=== PATIENT | female | born 1970 | race Caucasian/White ===

== ENCOUNTER → 2020-07-15 06:56 | Outpatient (CLI) | payer OTHER, MEDICAID, SELFPAY ==
[2020-07-15 07:45] LABS: Add Manual Diff / Slide Review NO; Basophils Absolute Auto 100 /uL (0-100); Basophils Percent Auto 0.8 % (0-2); Eosinophils Absolute Auto 200 /uL (0-450); Eosinophils Percent Auto 3.2 % (2-4); Hematocrit 44.6 % (36-46); Hemoglobin 14.4 g/dL (12.0-16.0); Lymphocytes Absolute Auto 1700 /uL (1100-4500); Lymphocytes Percent Auto 24.6 % (25-40); Mean Corpuscular HGB Conc 32.3 % (30-36); Mean Corpuscular Hemoglobin 29.5 PG (26-34); Mean Corpuscular Volume 91.3 fL (80-100); Monocytes Absolute Auto 700 /uL (0-900); Monocytes Percent Auto 9.9 % (3-14); Neutrophils Absolute Auto 4100 /uL (1500-7000); Neutrophils Percent Auto 61.5 % (50-75); Platelet Count 210 X10^3/uL (150-400); Red Blood Cell Count 4.89 X10^6/uL (4.0-5.2); Red Cell Distribution Width 14.5 % (11.6-14.8); White Blood Cell Count 6.7 X10^3/uL (4.5-11.0)
[2020-07-15 08:17] LABS: Alanine Aminotransferase 18 IU/L (<35); Albumin 4.1 g/dL (3.5-5.0); Albumin Globulin Ratio 1.5 (1.0-2.8); Alkaline Phosphatase 56 U/L (38-126); Aspartate Aminotransferase 24 IU/L (14-36); BUN Creatinine Ratio 26.9 (6-22); Bilirubin Total 0.6 mg/dL (0.2-1.3); Blood Urea Nitrogen 18 mg/dL (7-17); Carbon Dioxide 28 mmol/L (22-32); Chloride 107 mmol/L (98-107); Cholesterol 147 mg/dL (140-199); Estimated Glomerular Filt Rate > 60.0 mL/min (>60); Globulin 2.7 g/dL (1.7-4.1); Glucose 97 mg/dL (70-100); HDL Cholesterol 48 mg/dL (40-60); HEMOLYSIS < 15 (0-50); LDL Cholesterol Calculated 86 mg/dL (<100); Potassium 3.8 mmol/L (3.4-5.1); Sodium 139 mmol/L (137-145); Total Protein 6.8 g/dL (6.3-8.2); Triglycerides 65 mg/dL (35-150)
[2020-07-15 09:13] LABS: Free T3, Triiodothyronine Free 3.85 pg/mL (2.77-5.27); Free T4, Direct Thyroxine 0.83 ng/dL (0.78-2.19)
== END ==
PROVIDERS: PCP Family Medicine; Referring Provider Family Medicine; Visit Provider Family Medicine
DX: R53.81 Other malaise (principal); R53.83 Other fatigue; Z13.29 Encounter for screening for other suspected endocrine disorder
CPT/HCPCS: 36415; 80053; 80061; 84439; 84443; 84481; 85025

== ENCOUNTER → 2020-09-17 09:22 | Outpatient (CLI) | payer OTHER, MEDICAID, SELFPAY ==
--- NOTE | 2020-09-17 09:42 | DI.CT.S_ITS ---
PROCEDURE: CT MASTOID TEMPORAL INDICATIONS: right ear pain/right mastoiditis COMPARISON: None. TECHNIQUE: Noncontrast 0.6 mm thick direct axial and coronal sections acquired through each temporal bone separately. FINDINGS Right Temporal Bone: External auditory canal: Patent without debris. Scutum is sharp. No abnormal enhancement present. Ossicular chain and middle ear: Ossicular chain intact. Prussak space and sinus tympani are clear. Oval and round window niche are clear. Tegmen tympani covers both the middle and inner ear without erosions. Inner ear otic capsule: Cochlea, semicircular canals, and vestibular capsules are appropriately formed. Normal bony mineralization noted without lytic foci. Vestibular and cochlear aqueducts unremarkable. Facial nerve canal: Unremarkable. Internal auditory canal: Well-defined without expansion or erosion. Carotid canal and jugular bulb: Well defined. No high-riding jugular bulb. Mastoid air cells: Clear. Aditus ad antrum unremarkable. Temporomandibular joint: Unremarkable Left Temporal Bone: External auditory canal: Patent without debris. Scutum is sharp. No abnormal enhancement present. Ossicular chain and middle ear: Ossicular chain intact. Prussak space and sinus tympani are clear. Oval and round window niche are clear. Tegmen tympani covers both the middle and inner ear without erosions. Inner ear otic capsule: Cochlea, semicircular canals, and vestibular capsules are appropriately formed. Normal bony mineralization noted without lytic foci. Vestibular and cochlear aqueducts unremarkable. Facial nerve canal: Unremarkable. Internal auditory canal: Well-defined without expansion or erosion. Carotid canal and jugular bulb: Well defined. No high-riding jugular bulb. Mastoid air cells: Clear. Aditus ad antrum unremarkable. Temporomandibular joint: Unremarkable IMPRESSION: Unremarkable CT of bilateral temporal bones and mastoids without evidence of mastoiditis or sclerosis. Dictated by: Harlan Tolbert M.D. on 09/17/2020 at 11:58 Approved by: Harlan Tolbert M.D. on 09/17/2020 at 12:54
== END ==
PROVIDERS: PCP Family Medicine; Referring Provider Internal Medicine; Visit Provider Internal Medicine
DX: H70.11 Chronic mastoiditis, right ear (principal); H92.01 Otalgia, right ear
CPT/HCPCS: 70480

== ENCOUNTER → 2021-03-01 15:39 | Outpatient (CLI) | payer OTHER, MEDICAID, SELFPAY ==
--- NOTE | 2021-03-01 | DI.CT.S_ITS ---
PROCEDURE: CT SOFT TISSUE NECK W CON INDICATIONS: LUMP OF NECK TECHNIQUE: After the administration of intravenous contrast, 3.0 mm axial sections acquired from the sella to the aortic arch. Additional oblique axial 3.0 mm sections acquired through the pharynx. 3 mm thick coronal and sagittal reformats were generated. For radiation dose reduction, the following was used: automated exposure control. COMPARISON: [facility], CT, CT MASTOID TEMPORAL, 09/17/2020, 9:28. FINDINGS: Image quality: Excellent. Lymph nodes: No enlarged lymph nodes seen throughout the neck. Vessels: Visualized vasculature appears patent. Neck spaces: The oropharynx, nasopharynx, and pharynx demonstrate no mucosal lesions. The vocal cords, false vocal cords, pyriform sinuses, epiglottis, vallecula, and tongue base all appear normal. Extramucosal spaces appear unremarkable. Glands: Marker corresponds to the right parotid gland. No focal nodule noted. The parotid and submandibular glands appear normal. Thyroid gland unremarkable. Miscellaneous: Visualized brain and orbits appear normal. Lung apices appear clear. Superficial soft tissues appear normal. Bones: No suspicious bony lesions. Visualized sinuses and mastoids appear unremarkable. IMPRESSION: Prior palpable abnormality corresponds to the normal appearing parotid gland. If clinical concern persists, consider follow-up ultrasound. Approved by: Harlan Tolbert M.D. on 03/01/2021 at 16:26
== END ==
PROVIDERS: PCP Family Medicine; Referring Provider Otolaryngology; Visit Provider Otolaryngology
DX: R22.1 Localized swelling, mass and lump, neck (principal)
CPT/HCPCS: 70491

== ENCOUNTER → 2021-04-09 09:54 | Outpatient (CLI) | payer OTHER, MEDICAID, SELFPAY ==
[2021-04-09 10:34] LABS: COVID19 -Nasal RAPID POSITIVE (Negative)
== END ==
PROVIDERS: PCP Family Medicine; Visit Provider Physician Assistant
DX: U07.1 COVID-19 (principal)
CPT/HCPCS: 87635

== ENCOUNTER 2021-05-21 14:30 | Outpatient (RCR) | payer OTHER, MEDICAID, SELFPAY ==
--- NOTE | 2021-03-11 19:41 | PT.OIE ---
Current Diagnoses Otalgia, right ear (03/11/21) Other abnormal auditory perceptions, right ear (03/11/21) Other specified disorders of right ear (03/11/21) Unspecified temporomandibular joint disorder, unspecified side (03/11/21) Cervicalgia (03/11/21) Muscle weakness (generalized) (03/11/21) Abnormal posture (03/11/21) Past Medical History (Last Updated 11/19/20 @ 17:20 by Leno Gray DO) Anxiety Anxiety about health Asthma Bilateral temporomandibular joint pain-dysfunction syndrome Cervical somatic dysfunction Chronic dental pain Chronic eustachian tube dysfunction Cranial somatic dysfunction Diaphragm injury Excessive cerumen in right ear canal Headache History of recurrent ear infection History of tonsillectomy (~1987) Jaw anomaly Pelvic somatic dysfunction Plantar warts PTSD (post-traumatic stress disorder) Segmental and somatic dysfunction of abdomen and other regions Past Surgical History (Last Reviewed 05/25/20 @ 22:31 by RASHMI Bray) Anesthesia History of tonsillectomy (~1987) Visit Care Team Role Provider Type Leno Gray DO Primary Care Provider Physician Specialty: Family Practice Address: [address] [place] [address] Email: Seng Griffin MD Attending Provider Physician Referring Provider Specialty: Ear, Nose, Throat Address: [address] [place] [address], [facility] Email: [email or web address] Physical Therapy Initial Evaluation PT-OP-A Visit Information Start: 03/10/21 15:26 Freq: Status: Active Protocol: Document 03/11/21 09:05 [facility] (Rec: 03/11/21 09:50 [facility] [id number]) Out-Patient Physical Therapy Visit Information Visit Information Visit Type Initial Evaluation Visit Start Time 09:04 Visit Stop Time 09:45 Total Visit Minutes 41 Visit Number 1 Number of OFFLINE CUTTER Visits 0 PT-OP-B Current Condition Start: 03/10/21 15:26 Freq: Status: Active Protocol: Document 03/11/21 09:05 [facility] (Rec: 03/11/21 09:50 [facility] [id number]) Current Condition History of Current Condition Onset Date 2 years Current Complaints R ear uncomfortable History of Current Condition Pt reports it feels like she needs to clear her ear after a flight or swimming. This has been happening for 2 years. she has had lots of tests and dental work. Her hearing is not affected. Pt has had prior root cannels and found that she had a tooth next to the other that had an infection and did another root cannel w/ o help. Pt has done acupuncture in the past with temporary relief. She has tried acupuncture on/off for a while. Pt reports this starts May when she was very sick. She thinks she may have had COVID. Pt reports sometime in September 2019, she had a metallic taste in her mouth and ear felt better til the fall. She went to a doctor d/t ear being painful. Pt reports she has small estation tubes and has had fluid build up. Pt reports MD prescribed her antibiotics for ear infection. She got severe vertigo d/t antibiotics and lasted until 3 days after it went away. Pt reprots now the last 6 months since dental work has been done, it clicks. ENT suggested OTC building guard deputy sheriff for clenching at night. Pt has been using building guard deputy sheriff for the past week and thinks maybe it has helped a tiny bit w/neck pain & head tension. Pt reports she hit her head really hard right before getting sick and hit it on a metal bar. It hurt so it stunned me and it made a big lump and had to put arnica and ice on it. Sometimes R arm goes numb with gardening or activities that use the arm a lot. 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 Prior Treatments and Tests IMPRESSION: Prior palpable abnormality corresponds to the normal appearing parotid gland. If clinical concern persists, consider follow-up ultrasound. IMPRESSION: Unremarkable CT of bilateral temporal bones and mastoids without evidence of mastoiditis Chiro did a little TMJ work ( Jose Barreto)- just seemed to make it hurt worse, but no relief acupuncture -helped temporarily w/ear issue or sclerosis. Treatment Goals Patient/Caregiver Goals no have jaw click and not feel like she has to move it around, get back to being able to do more gardening/working more w/B&B PT-OP-C Subjective Start: 03/10/21 15:26 Freq: Status: Active Protocol: Document 03/11/21 09:05 [facility] (Rec: 03/11/21 09:50 [facility] [id number]) OP-PT Pain Assessment Location neck pain Description Tightness Frequency Intermittent Radiating Location occ SWANN or tension into R head; Variations/Patterns ant brachium & post forearm & all of hand numbness Other Pain Aggravating Factors overuse of R arm Other Pain Alleviating Factors nightguard, stretch jaw Pain Location Details R ear and ant jaw Description- Other tension & feels like ear near needs to clear Frequency Daily Radiating Location ringing if push bottom jaw fwd -goes away when jaw comes back Variations/Patterns jaw now cracks Other Pain Aggravating Factors unsure Other Pain Alleviating Factors temp relief w/occ pop jaw w/ moving jaw PT-OP-F Manual Assessment Start: 03/10/21 15:26 Freq: Status: Active Protocol: Document 03/11/21 09:05 [facility] (Rec: 03/11/21 09:50 [facility] [id number]) Manual Assessments Soft Tissue Assessment Soft Tissue Mobility Assessment Supraspinatus, scalenes, upper trap, suboccipitals, traps palpation: tightness Pec palpation: increased tone and pain on palpation Temporal: R tight, pt reports feeling good Maseter: R tight along posterior border of jaw PT-OP-J Posture/Palpation/Skin Start: 03/10/21 15:26 Freq: Status: Active Protocol: Document 03/11/21 09:05 [facility] (Rec: 03/11/21 09:50 [facility] [id number]) Posture Evaluation [facility] Postural Classification System [facility] Postural Classifications Posterior/Posterior Vertebral Compression Test 1 Comments Posture Comments slight fwd shoulder and neck PT-OP-K Range of Motion Start: 03/10/21 15:26 Freq: Status: Active Protocol: Document 03/11/21 09:05 [facility] (Rec: 03/11/21 09:50 [facility] [id number]) Cervical Spine Range of Motion Cervical Spine Active Degrees Testing Position Sitting Flexion 57 Extension 60 Rotation Left 47 Rotation Right 46 Lateral Flexion Left 34 Lateral Flexion Right 37 ROM Limitations Soft Tissue Tightness Comments extension: tightness on right side SB R: makes pt want to click R jaw, increased pressure/ fullness in R ear R rot: pt hears noise L rot: pt reports feeling less comfortable compared to R rot TMJ Range of Motion Jaw Openning Jaw Openning (mm) 43 Comments Comments jaw opens well, slight deviation to left PT-OP-L Special Tests Start: 03/10/21 15:26 Freq: Status: Active Protocol: Document 03/11/21 09:05 [facility] (Rec: 03/11/21 09:50 [facility] [id number]) Special Tests Neural Special Tests- Upper Body Median Nerve Tension Test Results Positive Comments In standing, right side Radial Nerve Tension Test Results Negative Comments In standing, right side Ulnar Nerve Tension Test Results Negative Comments In standing, right side Other Special Tests Special Tests Spurlings: negative Alar ligament: negative PT-OP-M Strength Start: 03/10/21 15:26 Freq: Status: Active Protocol: Document 03/11/21 09:05 [facility] (Rec: 03/11/21 09:50 [facility] [id number]) Shoulder Strength Shoulder Manual Muscle Testing Right Flexion 5 Normal Extension 5 Normal Abduction (C5) 4+ Good+ Adduction 5 Normal External Rotation 5 Normal Internal Rotation 5 Normal Comments Elbow ext and flex 5/5 Left Flexion 5 Normal Extension 5 Normal Abduction (C5) 5 Normal Adduction 5 Normal External Rotation 5 Normal Internal Rotation 5 Normal Comments Elbow extension and flexion 5/ 5 PT-OP-T Assessment and Plan Start: 03/10/21 15:26 Freq: Status: Active Protocol: Document 03/11/21 09:05 [facility] (Rec: 03/11/21 09:50 [facility] [id number]) Physical Therapy Assessment Rehab Potential Rehabilitation Potential Good Evaluation Complexity Number of Personal Factors/Comorbidities 3 or More Number of Body Systems Impaired 4 or More Clinical Presentation at Evaluation Evolving Impairments Impairments Activity Tolerance,Functional Activities,Functional Mobility ,Pain,Posture,ROM,Soft Tissue Mobility,Strength Goals symptoms Shelter Goal (LTG) Pt will report no more feeling of needing to clear R ear or R jaw pain/uncomfortable popping. LTG Duration 05/11/21 ROM Short Term Goal (STG) Pt will be indep w/HEP for ROM & improving stability & posture STG Duration 04/11/21 Special Education Tutor Goal (LTG) Pt will have full cervical ROM w/o inc in jaw, head, neck or UE symptoms to allow typical activities w/o inc of symptoms . LTG Duration 05/11/21 activities Shelter Goal (LTG) Pt will be able to do gardening & cleaning needed for her jobs w/o inc in RUE, neck and jaw pain. LTG Duration 05/11/21 Assessment Summary Assessment Pt presents with R sided jaw pain and clicking along w/ R sided neck pain w/RUE numbness consistent w/median nerve involevement based on testing. She he a feeling of her R ear being plugged which is very bothersome and has had extensive testing all showing normal (hearing, head CT, neck soft tissue MRI). Her ear and jaw symptoms worsen w/neck motion, indicating that her neck is likely involved in causing this pain. She would benefit from skilled PT to work on cervical, TMJ, thoracic and RUE mobility in order to decrease her symptoms . Physical Therapy Plan Frequency and Duration Frequency of Treatment 1-2x/week Duration of Treatment 2 months Plan of Care Start Date 03/11/21 Plan of Care End Date 05/11/21 Therapeutic Interventions Therapeutic Interventions Home Exercise Program,Joint Mobilizations,Manual Therapy, Neuromuscular Re-education, Patient/Caregiver Education, Self-Care/Home Management,Soft Tissue Mobilization,Taping, Therapeutic Activities, Therapeutic Exercises Modalities Cold Pack/Ice Massage,Electric Stimulation,Hot Packs, Traction- Mechanical, Ultrasound Next Visit Focus/Plan Next Note Type Treatment Note Next Visit Plan shorter visits d/t insurance limits, vertebral artery testing, cervical retraction, wall posture, STM to cervical and pec region & cranium
--- NOTE | 2021-03-11 19:41 | PT.OPPOC ---
Physical, Occupational & Speech Therapy At [facility] Current Diagnoses Otalgia, right ear (03/11/21) Other abnormal auditory perceptions, right ear (03/11/21) Other specified disorders of right ear (03/11/21) Unspecified temporomandibular joint disorder, unspecified side (03/11/21) Cervicalgia (03/11/21) Muscle weakness (generalized) (03/11/21) Abnormal posture (03/11/21) Visit Care Team Role Provider Type Leno Gray DO Primary Care Provider Physician Specialty: Family Practice Address: [address] [place] [address] Email: Seng Griffin MD Attending Provider Physician Referring Provider Specialty: Ear, Nose, Throat Address: [address] [place] [address] Email: [email or web address] Plan Of Care PT-OP-T Assessment and Plan Start: 03/10/21 15:26 Freq: Status: Active Protocol: Document 03/11/21 09:05 [facility] (Rec: 03/11/21 09:50 [facility] [id number]) Physical Therapy Assessment Rehab Potential Rehabilitation Potential Good Evaluation Complexity Number of Personal Factors/Comorbidities 3 or More Number of Body Systems Impaired 4 or More Clinical Presentation at Evaluation Evolving Impairments Impairments Activity Tolerance,Functional Activities,Functional Mobility ,Pain,Posture,ROM,Soft Tissue Mobility,Strength Goals symptoms Residential Goal (LTG) Pt will report no more feeling of needing to clear R ear or R jaw pain/uncomfortable popping. LTG Duration 05/11/21 ROM Short Term Goal (STG) Pt will be indep w/HEP for ROM & improving stability & posture STG Duration 04/11/21 Math And Physics Instructor Goal (LTG) Pt will have full cervical ROM w/o inc in jaw, head, neck or UE symptoms to allow typical activities w/o inc of symptoms . LTG Duration 05/11/21 activities Math And Physics Instructor Goal (LTG) Pt will be able to do gardening & cleaning needed for her jobs w/o inc in RUE, neck and jaw pain. LTG Duration 05/11/21 Assessment Summary Assessment Pt presents with R sided jaw pain and clicking along w/ R sided neck pain w/RUE numbness consistent w/median nerve involevement based on testing. She he a feeling of her R ear being plugged which is very bothersome and has had extensive testing all showing normal (hearing, head CT, neck soft tissue MRI). Her ear and jaw symptoms worsen w/neck motion, indicating that her neck is likely involved in causing this pain. She would benefit from skilled PT to work on cervical, TMJ, thoracic and RUE mobility in order to decrease her symptoms . Physical Therapy Plan Frequency and Duration Frequency of Treatment 1-2x/week Duration of Treatment 2 months Plan of Care Start Date 03/11/21 Plan of Care End Date 05/11/21 Therapeutic Interventions Therapeutic Interventions Home Exercise Program,Joint Mobilizations,Manual Therapy, Neuromuscular Re-education, Patient/Caregiver Education, Self-Care/Home Management,Soft Tissue Mobilization,Taping, Therapeutic Activities, Therapeutic Exercises Modalities Cold Pack/Ice Massage,Electric Stimulation,Hot Packs, Traction- Mechanical, Ultrasound Next Visit Focus/Plan Next Note Type Treatment Note Next Visit Plan shorter visits d/t insurance limits, vertebral artery testing, cervical retraction, wall posture, STM to cervical and pec region & cranium Plan of Care Dates Plan of Care Start Date 03/11/21 Plan of Care End Date 05/11/21 Electronically Signed by: Taya Griffin, PT 03/11/21 777 Please Sign and Return: I have reviewed this Plan of Care and certify that the skilled therapy services above are required to meet the patient?s needs. Physician Signature Date Printed Name and Credentials Clinical Instructor Signature Printed Name and Credentials
--- NOTE | 2021-03-18 18:15 | PT.OTN ---
Current Diagnoses Otalgia, right ear (03/18/21) Other abnormal auditory perceptions, right ear (03/18/21) Other specified disorders of right ear (03/18/21) Unspecified temporomandibular joint disorder, unspecified side (03/18/21) Cervicalgia (03/18/21) Muscle weakness (generalized) (03/18/21) Abnormal posture (03/18/21) Physical Therapy Treatment Note PT-OP-A Visit Information Start: 03/10/21 15:26 Freq: Status: Active Protocol: Document 03/18/21 08:16 [facility] (Rec: 03/18/21 18:14 [facility] [id number]) Out-Patient Physical Therapy Visit Information Visit Information Visit Type Treatment Note Visit Start Time 08:19 Visit Stop Time 08:56 Total Visit Minutes 37 Visit Number 2 Number of CRAB PICKER Visits 0 PT-OP-B Current Condition Start: 03/10/21 15:26 Freq: Status: Active Protocol: Document 03/11/21 09:05 [facility] (Rec: 03/11/21 09:50 [facility] [id number]) Current Condition History of Current Condition Onset Date 2 years Current Complaints R ear uncomfortable History of Current Condition Pt reports it feels like she needs to clear her ear after a flight or swimming. This has been happening for 2 years. she has had lots of tests and dental work. Her hearing is not affected. Pt has had prior root cannels and found that she had a tooth next to the other that had an infection and did another root cannel w/ o help. Pt has done acupuncture in the past with temporary relief. She has tried acupuncture on/off for a while. Pt reports this starts May when she was very sick. She thinks she may have had COVID. Pt reports sometime in September 2019, she had a metallic taste in her mouth and ear felt better til the fall. She went to a doctor d/t ear being painful. Pt reports she has small estation tubes and has had fluid build up. Pt reports MD prescribed her antibiotics for ear infection. She got severe vertigo d/t antibiotics and lasted until 3 days after it went away. Pt reprots now the last 6 months since dental work has been done, it clicks. ENT suggested OTC director group sales for clenching at night. Pt has been using director group sales for the past week and thinks maybe it has helped a tiny bit w/neck pain & head tension. Pt reports she hit her head really hard right before getting sick and hit it on a metal bar. It hurt so it stunned me and it made a big lump and had to put arnica and ice on it. Sometimes R arm goes numb with gardening or activities that use the arm a lot. 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 Prior Treatments and Tests IMPRESSION: Prior palpable abnormality corresponds to the normal appearing parotid gland. If clinical concern persists, consider follow-up ultrasound. IMPRESSION: Unremarkable CT of bilateral temporal bones and mastoids without evidence of mastoiditis Chiro did a little TMJ work ( Jose Barreto)- just seemed to make it hurt worse, but no relief acupuncture -helped temporarily w/ear issue or sclerosis. Treatment Goals Patient/Caregiver Goals no have jaw click and not feel like she has to move it around, get back to being able to do more gardening/working more w/B&B PT-OP-C Subjective Start: 03/10/21 15:26 Freq: Status: Active Protocol: Document 03/18/21 08:16 [facility] (Rec: 03/18/21 18:14 [facility] [id number]) OP-PT Subjective Patient Comments Patient Comments Pt reports occ gets feeling of tighntess w/hard to take breath PT-OP-F Manual Assessment Start: 03/10/21 15:26 Freq: Status: Active Protocol: Document 03/11/21 09:05 [facility] (Rec: 03/11/21 09:50 [facility] [id number]) Manual Assessments Soft Tissue Assessment Soft Tissue Mobility Assessment Supraspinatus, scalenes, upper trap, suboccipitals, traps palpation: tightness Pec palpation: increased tone and pain on palpation Temporal: R tight, pt reports feeling good Maseter: R tight along posterior border of jaw PT-OP-J Posture/Palpation/Skin Start: 03/10/21 15:26 Freq: Status: Active Protocol: Document 03/11/21 09:05 [facility] (Rec: 03/11/21 09:50 [facility] [id number]) Posture Evaluation Errol Postural Classification System Errol Postural Classifications Posterior/Posterior Vertebral Compression Test 1 Comments Posture Comments slight fwd shoulder and neck PT-OP-K Range of Motion Start: 03/10/21 15:26 Freq: Status: Active Protocol: Document 03/11/21 09:05 [facility] (Rec: 03/11/21 09:50 [facility] [id number]) Cervical Spine Range of Motion Cervical Spine Active Degrees Testing Position Sitting Flexion 57 Extension 60 Rotation Left 47 Rotation Right 46 Lateral Flexion Left 34 Lateral Flexion Right 37 ROM Limitations Soft Tissue Tightness Comments extension: tightness on right side SB R: makes pt want to click R jaw, increased pressure/ fullness in R ear R rot: pt hears noise L rot: pt reports feeling less comfortable compared to R rot TMJ Range of Motion Jaw Openning Jaw Openning (mm) 43 Comments Comments jaw opens well, slight deviation to left PT-OP-L Special Tests Start: 03/10/21 15:26 Freq: Status: Active Protocol: Document 03/11/21 09:05 [facility] (Rec: 03/11/21 09:50 [facility] [id number]) Special Tests Neural Special Tests- Upper Body Median Nerve Tension Test Results Positive Comments In standing, right side Radial Nerve Tension Test Results Negative Comments In standing, right side Ulnar Nerve Tension Test Results Negative Comments In standing, right side Other Special Tests Special Tests Spurlings: negative Alar ligament: negative PT-OP-M Strength Start: 03/10/21 15:26 Freq: Status: Active Protocol: Document 03/11/21 09:05 [facility] (Rec: 03/11/21 09:50 [facility] [id number]) Shoulder Strength Shoulder Manual Muscle Testing Right Flexion 5 Normal Extension 5 Normal Abduction (C5) 4+ Good+ Adduction 5 Normal External Rotation 5 Normal Internal Rotation 5 Normal Comments Elbow ext and flex 5/5 Left Flexion 5 Normal Extension 5 Normal Abduction (C5) 5 Normal Adduction 5 Normal External Rotation 5 Normal Internal Rotation 5 Normal Comments Elbow extension and flexion 5/ 5 PT-OP-Q Treatments Start: 03/10/21 15:26 Freq: Status: Active Protocol: Document 03/18/21 08:16 [facility] (Rec: 03/18/21 18:14 [facility] [id number]) Therapeutic Exercises Sidelying Exercises open book Sidelying Exercise Name attempted w/straight arm but painful for pt so stopped and did w/bent arm Side bilateral Reps/Minutes 15 Sitting Exercises retraction Sitting Exercise Name 1. cervical 2. scapula Side bilateral Reps/Minutes 12 ea Standing Exercises wall posture Standing Exercise Name roll up w/shoulder ext Side bilateral Reps/Minutes 4 min Manual Therapy Treatment Soft Tissue Mobilization cervical Body Location R SCM & scalenes Mobilization Type Rolling,Strumming Intensity/Depth Moderate Comments w/gentle cervical rotaiton PT-OP-T Assessment and Plan Start: 03/10/21 15:26 Freq: Status: Active Protocol: Document 03/18/21 08:16 [facility] (Rec: 03/18/21 18:14 [facility] [id number]) Physical Therapy Assessment Goals symptoms Senior Care Goal (LTG) Pt will report no more feeling of needing to clear R ear or R jaw pain/uncomfortable popping. LTG Duration 05/11/21 ROM Short Term Goal (STG) Pt will be indep w/HEP for ROM & improving stability & posture STG Duration 04/11/21 Senior Care Goal (LTG) Pt will have full cervical ROM w/o inc in jaw, head, neck or UE symptoms to allow typical activities w/o inc of symptoms . LTG Duration 05/11/21 activities Senior Care Goal (LTG) Pt will be able to do gardening & cleaning needed for her jobs w/o inc in RUE, neck and jaw pain. LTG Duration 05/11/21 Assessment Summary Assessment Pt tolerated most exercises well but did require cueing signifcnatly for seated posture for chin tuck & scap retraciton exercises. She had neural UE symptoms in R UE w/ open book so limited to keeping arm at side. Physical Therapy Plan Frequency and Duration Frequency of Treatment 1-2x/week Duration of Treatment 2 months Plan of Care Start Date 03/11/21 Plan of Care End Date 05/11/21 Next Visit Focus/Plan Next Note Type Treatment Note Next Visit Plan shorter visits d/t insurance limits, review exercises, STM to cervical and pec region & cranium
--- NOTE | 2021-03-22 10:27 | PT.OTN ---
Current Diagnoses Otalgia, right ear (03/22/21) Other abnormal auditory perceptions, right ear (03/22/21) Other specified disorders of right ear (03/22/21) Unspecified temporomandibular joint disorder, unspecified side (03/22/21) Cervicalgia (03/22/21) Muscle weakness (generalized) (03/22/21) Abnormal posture (03/22/21) Physical Therapy Treatment Note PT-OP-A Visit Information Start: 03/10/21 15:26 Freq: Status: Active Protocol: Document 03/22/21 09:50 [facility] (Rec: 03/22/21 11:53 [facility] [id number]) Out-Patient Physical Therapy Visit Information Visit Information Visit Type Treatment Note Visit Start Time 09:50 Visit Stop Time 10:27 Total Visit Minutes 37 Visit Number 3 Number of MEDICAL ASSISTANT PRN Visits 1 PT-OP-B Current Condition Start: 03/10/21 15:26 Freq: Status: Active Protocol: Document 03/11/21 09:05 [facility] (Rec: 03/11/21 09:50 [facility] [id number]) Current Condition History of Current Condition Onset Date 2 years Current Complaints R ear uncomfortable History of Current Condition Pt reports it feels like she needs to clear her ear after a flight or swimming. This has been happening for 2 years. she has had lots of tests and dental work. Her hearing is not affected. Pt has had prior root cannels and found that she had a tooth next to the other that had an infection and did another root cannel w/ o help. Pt has done acupuncture in the past with temporary relief. She has tried acupuncture on/off for a while. Pt reports this starts May when she was very sick. She thinks she may have had COVID. Pt reports sometime in September 2019, she had a metallic taste in her mouth and ear felt better til the fall. She went to a doctor d/t ear being painful. Pt reports she has small estation tubes and has had fluid build up. Pt reports MD prescribed her antibiotics for ear infection. She got severe vertigo d/t antibiotics and lasted until 3 days after it went away. Pt reprots now the last 6 months since dental work has been done, it clicks. ENT suggested OTC project management professor for clenching at night. Pt has been using project management professor for the past week and thinks maybe it has helped a tiny bit w/neck pain & head tension. Pt reports she hit her head really hard right before getting sick and hit it on a metal bar. It hurt so it stunned me and it made a big lump and had to put arnica and ice on it. Sometimes R arm goes numb with gardening or activities that use the arm a lot. 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 Prior Treatments and Tests IMPRESSION: Prior palpable abnormality corresponds to the normal appearing parotid gland. If clinical concern persists, consider follow-up ultrasound. IMPRESSION: Unremarkable CT of bilateral temporal bones and mastoids without evidence of mastoiditis Chiro did a little TMJ work ( Jose Barreto)- just seemed to make it hurt worse, but no relief acupuncture -helped temporarily w/ear issue or sclerosis. Treatment Goals Patient/Caregiver Goals no have jaw click and not feel like she has to move it around, get back to being able to do more gardening/working more w/B&B PT-OP-C Subjective Start: 03/10/21 15:26 Freq: Status: Active Protocol: Document 03/22/21 09:50 [facility] (Rec: 03/22/21 11:53 [facility] [id number]) OP-PT Subjective Patient Comments Patient Comments Pt reports TMJ clicking more R than L, L side of neck very tight closer to occiput and still deep tightness to R TMJ. Pt stated didn't do her exercises , didn't get the printed exercises was supposed to help performance, wants to review today. PT-OP-F Manual Assessment Start: 03/10/21 15:26 Freq: Status: Active Protocol: Document 03/11/21 09:05 [facility] (Rec: 03/11/21 09:50 [facility] [id number]) Manual Assessments Soft Tissue Assessment Soft Tissue Mobility Assessment Supraspinatus, scalenes, upper trap, suboccipitals, traps palpation: tightness Pec palpation: increased tone and pain on palpation Temporal: R tight, pt reports feeling good Maseter: R tight along posterior border of jaw PT-OP-J Posture/Palpation/Skin Start: 03/10/21 15:26 Freq: Status: Active Protocol: Document 03/11/21 09:05 [facility] (Rec: 03/11/21 09:50 [facility] [id number]) Posture Evaluation [facility] Postural Classification System Errol Postural Classifications Posterior/Posterior Vertebral Compression Test 1 Comments Posture Comments slight fwd shoulder and neck PT-OP-K Range of Motion Start: 03/10/21 15:26 Freq: Status: Active Protocol: Document 03/11/21 09:05 [facility] (Rec: 03/11/21 09:50 [facility] [id number]) Cervical Spine Range of Motion Cervical Spine Active Degrees Testing Position Sitting Flexion 57 Extension 60 Rotation Left 47 Rotation Right 46 Lateral Flexion Left 34 Lateral Flexion Right 37 ROM Limitations Soft Tissue Tightness Comments extension: tightness on right side SB R: makes pt want to click R jaw, increased pressure/ fullness in R ear R rot: pt hears noise L rot: pt reports feeling less comfortable compared to R rot TMJ Range of Motion Jaw Openning Jaw Openning (mm) 43 Comments Comments jaw opens well, slight deviation to left PT-OP-L Special Tests Start: 03/10/21 15:26 Freq: Status: Active Protocol: Document 03/11/21 09:05 [facility] (Rec: 03/11/21 09:50 [facility] [id number]) Special Tests Neural Special Tests- Upper Body Median Nerve Tension Test Results Positive Comments In standing, right side Radial Nerve Tension Test Results Negative Comments In standing, right side Ulnar Nerve Tension Test Results Negative Comments In standing, right side Other Special Tests Special Tests Spurlings: negative Alar ligament: negative PT-OP-M Strength Start: 03/10/21 15:26 Freq: Status: Active Protocol: Document 03/11/21 09:05 [facility] (Rec: 03/11/21 09:50 [facility] [id number]) Shoulder Strength Shoulder Manual Muscle Testing Right Flexion 5 Normal Extension 5 Normal Abduction (C5) 4+ Good+ Adduction 5 Normal External Rotation 5 Normal Internal Rotation 5 Normal Comments Elbow ext and flex 5/5 Left Flexion 5 Normal Extension 5 Normal Abduction (C5) 5 Normal Adduction 5 Normal External Rotation 5 Normal Internal Rotation 5 Normal Comments Elbow extension and flexion 5/ 5 PT-OP-Q Treatments Start: 03/10/21 15:26 Freq: Status: Active Protocol: Document 03/22/21 09:50 [facility] (Rec: 03/22/21 11:56 [facility] [id number]) Therapeutic Exercises Supine Exercises CS rotation w/ chin nods Side bilateral Resistance AROM Reps/Minutes x5 Comments post manual MWM- tighter on L than R. Sitting Exercises retraction Sitting Exercise Name 1. cervical 2. scapula Side bilateral Reps/Minutes 5 sec hold x12 ea Comments post wall posture for CS and trunk alignment feedback Standing Exercises CS alignment, Jaw open/ close Standing Exercise Name isometric R lateral pressure mandible open/ close Resistance AROM Equipment Used mirror Reps/Minutes 3 min Comments improved decrease clicking small range wall posture Standing Exercise Name roll up w/shoulder ext Side bilateral Reps/Minutes 3 min Comments cued for alignment corrections Other Exercises Self STMs MWM Other Exercise Name sustained pressure chin nods/ rotations Side bilateral Reps/Minutes discussed but not performed Comments verbalized understanding- review next tx for self relief UT. Manual Therapy Treatment Soft Tissue Mobilization Temporalis Body Location R Mobilization Type Cross-Friction Intensity/Depth Moderate Body Position Hooklying Comments manual and instructed self application jaw Body Location Intraoral: R masseter, R med pterygoid Mobilization Type Myofascial Release,Sustained Pressure Intensity/Depth Moderate Body Position Hooklying Comments manual and instruct self application intraoral cervical Body Location B occipitals, R>L SCM, R>L scalenes, L>R UT, Mobilization Type Rolling,Strumming,Sustained Pressure Intensity/Depth Moderate Body Position Hooklying Comments manual then with MWM chin tuck and cs rotation. Instructed use of theracane (S at home) for self STMs. PT-OP-T Assessment and Plan Start: 03/10/21 15:26 Freq: Status: Active Protocol: Document 03/22/21 09:50 [facility] (Rec: 03/22/21 11:53 [facility] [id number]) Physical Therapy Assessment Goals symptoms Usp Goal (LTG) Pt will report no more feeling of needing to clear R ear or R jaw pain/uncomfortable popping. LTG Duration 05/11/21 ROM Short Term Goal (STG) Pt will be indep w/HEP for ROM & improving stability & posture STG Duration 04/11/21 Transition Nurse Goal (LTG) Pt will have full cervical ROM w/o inc in jaw, head, neck or UE symptoms to allow typical activities w/o inc of symptoms . LTG Duration 05/11/21 activities Usp Goal (LTG) Pt will be able to do gardening & cleaning needed for her jobs w/o inc in RUE, neck and jaw pain. LTG Duration 05/11/21 Assessment Summary Assessment Pt improved decrease tension post STMs R temporalis, med pterygoid, prox scalene and SCM with instruction on self access intraloral STMs, MWM and improved understanding self awareness of CS DNF and more R lateral side bend to neutral alignment using mirror for feedback. Improved postural alignment HEP review w/ provided hand outs. Initated isometric lateral R open close mandible, recheck next tx, PT only thus far. Physical Therapy Plan Frequency and Duration Frequency of Treatment 1-2x/week Duration of Treatment 2 months Plan of Care Start Date 03/11/21 Plan of Care End Date 05/11/21 Therapeutic Interventions Therapeutic Interventions Home Exercise Program,Joint Mobilizations,Manual Therapy, Neuromuscular Re-education, Patient/Caregiver Education, Self-Care/Home Management,Soft Tissue Mobilization,Taping, Therapeutic Activities, Therapeutic Exercises Modalities Cold Pack/Ice Massage,Electric Stimulation,Hot Packs, Traction- Mechanical, Ultrasound Next Visit Focus/Plan Next Note Type Treatment Note Next Visit Plan Maintain [place] visits d/t insurance limits: review exercises, STM to cervical and pec region & cranium, self application.
--- NOTE | 2021-03-25 09:40 | PT.OTN ---
Current Diagnoses Otalgia, right ear (03/25/21) Other abnormal auditory perceptions, right ear (03/25/21) Other specified disorders of right ear (03/25/21) Unspecified temporomandibular joint disorder, unspecified side (03/25/21) Cervicalgia (03/25/21) Muscle weakness (generalized) (03/25/21) Abnormal posture (03/25/21) Physical Therapy Treatment Note PT-OP-A Visit Information Start: 03/10/21 15:26 Freq: Status: Active Protocol: Document 03/25/21 08:15 [facility] (Rec: 03/25/21 09:37 [facility] [id number]) Out-Patient Physical Therapy Visit Information Visit Information Visit Type Treatment Note Visit Start Time 08:20 Visit Stop Time 09:07 Total Visit Minutes 47 Visit Number 4 Number of NURSE PRIVATE DUTY Visits 0 PT-OP-B Current Condition Start: 03/10/21 15:26 Freq: Status: Active Protocol: Document 03/11/21 09:05 [facility] (Rec: 03/11/21 09:50 [facility] [id number]) Current Condition History of Current Condition Onset Date 2 years Current Complaints R ear uncomfortable History of Current Condition Pt reports it feels like she needs to clear her ear after a flight or swimming. This has been happening for 2 years. she has had lots of tests and dental work. Her hearing is not affected. Pt has had prior root cannels and found that she had a tooth next to the other that had an infection and did another root cannel w/ o help. Pt has done acupuncture in the past with temporary relief. She has tried acupuncture on/off for a while. Pt reports this starts May when she was very sick. She thinks she may have had COVID. Pt reports sometime in September 2019, she had a metallic taste in her mouth and ear felt better til the fall. She went to a doctor d/t ear being painful. Pt reports she has small estation tubes and has had fluid build up. Pt reports MD prescribed her antibiotics for ear infection. She got severe vertigo d/t antibiotics and lasted until 3 days after it went away. Pt reprots now the last 6 months since dental work has been done, it clicks. ENT suggested OTC maritime guard for clenching at night. Pt has been using maritime guard for the past week and thinks maybe it has helped a tiny bit w/neck pain & head tension. Pt reports she hit her head really hard right before getting sick and hit it on a metal bar. It hurt so it stunned me and it made a big lump and had to put arnica and ice on it. Sometimes R arm goes numb with gardening or activities that use the arm a lot. 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 Prior Treatments and Tests IMPRESSION: Prior palpable abnormality corresponds to the normal appearing parotid gland. If clinical concern persists, consider follow-up ultrasound. IMPRESSION: Unremarkable CT of bilateral temporal bones and mastoids without evidence of mastoiditis Chiro did a little TMJ work ( Jose Barreto)- just seemed to make it hurt worse, but no relief acupuncture -helped temporarily w/ear issue or sclerosis. Treatment Goals Patient/Caregiver Goals no have jaw click and not feel like she has to move it around, get back to being able to do more gardening/working more w/B&B PT-OP-C Subjective Start: 03/10/21 15:26 Freq: Status: Active Protocol: Document 03/25/21 08:15 [facility] (Rec: 03/25/21 09:37 [facility] [id number]) OP-PT Subjective Patient Comments Patient Comments Pt reprots soreness in R jaw after last session but mostly just with palpation. She notes she feels good with her exercises PT-OP-F Manual Assessment Start: 03/10/21 15:26 Freq: Status: Active Protocol: Document 03/11/21 09:05 [facility] (Rec: 03/11/21 09:50 [facility] [id number]) Manual Assessments Soft Tissue Assessment Soft Tissue Mobility Assessment Supraspinatus, scalenes, upper trap, suboccipitals, traps palpation: tightness Pec palpation: increased tone and pain on palpation Temporal: R tight, pt reports feeling good Maseter: R tight along posterior border of jaw PT-OP-J Posture/Palpation/Skin Start: 03/10/21 15:26 Freq: Status: Active Protocol: Document 03/11/21 09:05 [facility] (Rec: 03/11/21 09:50 [facility] [id number]) Posture Evaluation [facility] Postural Classification System [facility] Postural Classifications Posterior/Posterior Vertebral Compression Test 1 Comments Posture Comments slight fwd shoulder and neck PT-OP-K Range of Motion Start: 03/10/21 15:26 Freq: Status: Active Protocol: Document 03/11/21 09:05 [facility] (Rec: 03/11/21 09:50 [facility] [id number]) Cervical Spine Range of Motion Cervical Spine Active Degrees Testing Position Sitting Flexion 57 Extension 60 Rotation Left 47 Rotation Right 46 Lateral Flexion Left 34 Lateral Flexion Right 37 ROM Limitations Soft Tissue Tightness Comments extension: tightness on right side SB R: makes pt want to click R jaw, increased pressure/ fullness in R ear R rot: pt hears noise L rot: pt reports feeling less comfortable compared to R rot TMJ Range of Motion Jaw Openning Jaw Openning (mm) 43 Comments Comments jaw opens well, slight deviation to left PT-OP-L Special Tests Start: 03/10/21 15:26 Freq: Status: Active Protocol: Document 03/11/21 09:05 [facility] (Rec: 03/11/21 09:50 [facility] [id number]) Special Tests Neural Special Tests- Upper Body Median Nerve Tension Test Results Positive Comments In standing, right side Radial Nerve Tension Test Results Negative Comments In standing, right side Ulnar Nerve Tension Test Results Negative Comments In standing, right side Other Special Tests Special Tests Spurlings: negative Alar ligament: negative PT-OP-M Strength Start: 03/10/21 15:26 Freq: Status: Active Protocol: Document 03/11/21 09:05 [facility] (Rec: 03/11/21 09:50 [facility] [id number]) Shoulder Strength Shoulder Manual Muscle Testing Right Flexion 5 Normal Extension 5 Normal Abduction (C5) 4+ Good+ Adduction 5 Normal External Rotation 5 Normal Internal Rotation 5 Normal Comments Elbow ext and flex 5/5 Left Flexion 5 Normal Extension 5 Normal Abduction (C5) 5 Normal Adduction 5 Normal External Rotation 5 Normal Internal Rotation 5 Normal Comments Elbow extension and flexion 5/ 5 PT-OP-Q Treatments Start: 03/10/21 15:26 Freq: Status: Active Protocol: Document 03/25/21 08:15 [facility] (Rec: 03/25/21 09:37 [facility] [id number]) Manual Therapy Treatment Soft Tissue Mobilization Temporalis Body Location R temoralis & cranial fascia Mobilization Type Myofascial Release,Strumming, Sustained Pressure Intensity/Depth Moderate Body Position Hooklying jaw Body Location masseter, digastric R Mobilization Type Myofascial Release,Sustained Pressure Intensity/Depth Moderate Body Position Hooklying cervical Body Location R SCM proximal Mobilization Type Rolling,Strumming,Sustained Pressure Intensity/Depth Moderate Body Position Hooklying Joint Mobilizations cervical Comments 1. C1 transverse L 2. C2 transverse L; R UPA jaw Joint R Direction PA Comments w/active open/close PT-OP-R Modalities Start: 03/10/21 15:26 Freq: Status: Active Protocol: Document 03/25/21 08:15 [facility] (Rec: 03/25/21 09:39 [facility] [id number]) Hot Pack/Cold Pack Treatment cervical Patient Position Hooklying Treatment Duration (minutes) 10 PT-OP-T Assessment and Plan Start: 03/10/21 15:26 Freq: Status: Active Protocol: Document 03/25/21 08:15 [facility] (Rec: 03/25/21 09:37 [facility] [id number]) Physical Therapy Assessment Goals symptoms Employment Evaluator/Case Manager Goal (LTG) Pt will report no more feeling of needing to clear R ear or R jaw pain/uncomfortable popping. LTG Duration 05/11/21 ROM Short Term Goal (STG) Pt will be indep w/HEP for ROM & improving stability & posture STG Duration 04/11/21 Alf Goal (LTG) Pt will have full cervical ROM w/o inc in jaw, head, neck or UE symptoms to allow typical activities w/o inc of symptoms . LTG Duration 05/11/21 activities Employment Evaluator/Case Manager Goal (LTG) Pt will be able to do gardening & cleaning needed for her jobs w/o inc in RUE, neck and jaw pain. LTG Duration 05/11/21 Assessment Summary Assessment Pt reported feeling release all the way to sacrum with masseter release. She has significant tightness w/R side of cranium and cervical that improves w/manual Physical Therapy Plan Frequency and Duration Frequency of Treatment 1-2x/week Duration of Treatment 2 months Plan of Care Start Date 03/11/21 Plan of Care End Date 05/11/21 Next Visit Focus/Plan Next Note Type Treatment Note Next Visit Plan Maintain [place] visits d/t insurance limits: try rows & start jaw opening w/toungue on roof of mouth
--- NOTE | 2021-03-30 12:09 | PT.OTN ---
Current Diagnoses Otalgia, right ear (03/30/21) Other abnormal auditory perceptions, right ear (03/30/21) Other specified disorders of right ear (03/30/21) Unspecified temporomandibular joint disorder, unspecified side (03/30/21) Cervicalgia (03/30/21) Muscle weakness (generalized) (03/30/21) Abnormal posture (03/30/21) Physical Therapy Treatment Note PT-OP-A Visit Information Start: 03/10/21 15:26 Freq: Status: Active Protocol: Document 03/30/21 10:38 [facility] (Rec: 03/30/21 11:22 [facility] [id number]) Out-Patient Physical Therapy Visit Information Visit Information Visit Type Treatment Note Visit Start Time 10:34 Visit Stop Time 11:21 Total Visit Minutes 47 Visit Number 5 Number of AIR TUCKER Visits 0 PT-OP-B Current Condition Start: 03/10/21 15:26 Freq: Status: Active Protocol: Document 03/11/21 09:05 [facility] (Rec: 03/11/21 09:50 [facility] [id number]) Current Condition History of Current Condition Onset Date 2 years Current Complaints R ear uncomfortable History of Current Condition Pt reports it feels like she needs to clear her ear after a flight or swimming. This has been happening for 2 years. she has had lots of tests and dental work. Her hearing is not affected. Pt has had prior root cannels and found that she had a tooth next to the other that had an infection and did another root cannel w/ o help. Pt has done acupuncture in the past with temporary relief. She has tried acupuncture on/off for a while. Pt reports this starts May when she was very sick. She thinks she may have had COVID. Pt reports sometime in September 2019, she had a metallic taste in her mouth and ear felt better til the fall. She went to a doctor d/t ear being painful. Pt reports she has small estation tubes and has had fluid build up. Pt reports MD prescribed her antibiotics for ear infection. She got severe vertigo d/t antibiotics and lasted until 3 days after it went away. Pt reprots now the last 6 months since dental work has been done, it clicks. ENT suggested OTC unarmed security guard for clenching at night. Pt has been using unarmed security guard for the past week and thinks maybe it has helped a tiny bit w/neck pain & head tension. Pt reports she hit her head really hard right before getting sick and hit it on a metal bar. It hurt so it stunned me and it made a big lump and had to put arnica and ice on it. Sometimes R arm goes numb with gardening or activities that use the arm a lot. 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 Prior Treatments and Tests IMPRESSION: Prior palpable abnormality corresponds to the normal appearing parotid gland. If clinical concern persists, consider follow-up ultrasound. IMPRESSION: Unremarkable CT of bilateral temporal bones and mastoids without evidence of mastoiditis Chiro did a little TMJ work ( Jose Barreto)- just seemed to make it hurt worse, but no relief acupuncture -helped temporarily w/ear issue or sclerosis. Treatment Goals Patient/Caregiver Goals no have jaw click and not feel like she has to move it around, get back to being able to do more gardening/working more w/B&B PT-OP-C Subjective Start: 03/10/21 15:26 Freq: Status: Active Protocol: Document 03/30/21 10:38 [facility] (Rec: 03/30/21 11:22 [facility] [id number]) OP-PT Subjective Patient Comments Patient Comments Pt reports having some feeling of almost ear ache in L ear that inc when seh moves her jaw around. R side feels less of the full feeling now PT-OP-F Manual Assessment Start: 03/10/21 15:26 Freq: Status: Active Protocol: Document 03/11/21 09:05 [facility] (Rec: 03/11/21 09:50 [facility] [id number]) Manual Assessments Soft Tissue Assessment Soft Tissue Mobility Assessment Supraspinatus, scalenes, upper trap, suboccipitals, traps palpation: tightness Pec palpation: increased tone and pain on palpation Temporal: R tight, pt reports feeling good Maseter: R tight along posterior border of jaw PT-OP-J Posture/Palpation/Skin Start: 03/10/21 15:26 Freq: Status: Active Protocol: Document 03/11/21 09:05 [facility] (Rec: 03/11/21 09:50 [facility] [id number]) Posture Evaluation [facility] Postural Classification System [facility] Postural Classifications Posterior/Posterior Vertebral Compression Test 1 Comments Posture Comments slight fwd shoulder and neck PT-OP-K Range of Motion Start: 03/10/21 15:26 Freq: Status: Active Protocol: Document 03/11/21 09:05 [facility] (Rec: 03/11/21 09:50 [facility] [id number]) Cervical Spine Range of Motion Cervical Spine Active Degrees Testing Position Sitting Flexion 57 Extension 60 Rotation Left 47 Rotation Right 46 Lateral Flexion Left 34 Lateral Flexion Right 37 ROM Limitations Soft Tissue Tightness Comments extension: tightness on right side SB R: makes pt want to click R jaw, increased pressure/ fullness in R ear R rot: pt hears noise L rot: pt reports feeling less comfortable compared to R rot TMJ Range of Motion Jaw Openning Jaw Openning (mm) 43 Comments Comments jaw opens well, slight deviation to left PT-OP-L Special Tests Start: 03/10/21 15:26 Freq: Status: Active Protocol: Document 03/11/21 09:05 [facility] (Rec: 03/11/21 09:50 [facility] [id number]) Special Tests Neural Special Tests- Upper Body Median Nerve Tension Test Results Positive Comments In standing, right side Radial Nerve Tension Test Results Negative Comments In standing, right side Ulnar Nerve Tension Test Results Negative Comments In standing, right side Other Special Tests Special Tests Spurlings: negative Alar ligament: negative PT-OP-M Strength Start: 03/10/21 15:26 Freq: Status: Active Protocol: Document 03/11/21 09:05 [facility] (Rec: 03/11/21 09:50 [facility] [id number]) Shoulder Strength Shoulder Manual Muscle Testing Right Flexion 5 Normal Extension 5 Normal Abduction (C5) 4+ Good+ Adduction 5 Normal External Rotation 5 Normal Internal Rotation 5 Normal Comments Elbow ext and flex 5/5 Left Flexion 5 Normal Extension 5 Normal Abduction (C5) 5 Normal Adduction 5 Normal External Rotation 5 Normal Internal Rotation 5 Normal Comments Elbow extension and flexion 5/ 5 PT-OP-Q Treatments Start: 03/10/21 15:26 Freq: Status: Active Protocol: Document 03/30/21 10:38 [facility] (Rec: 03/30/21 11:22 [facility] [id number]) Therapeutic Exercises Standing Exercises ext Standing Exercise Name 1. rows 2. shoulder ext Side bilateral Equipment Used L2 Reps/Minutes 20 Comments cues for scap movement Therapeutic Activity Therapeutic Activity posture Name standing in mirror Comments cues for ribcage & scap Manual Therapy Treatment Soft Tissue Mobilization jaw Body Location Intraoral: R masseter, R med pterygoid Mobilization Type Myofascial Release,Sustained Pressure Intensity/Depth Moderate cervical Body Location B SCM proximal Mobilization Type Rolling,Strumming,Sustained Pressure Intensity/Depth Moderate Body Position Hooklying PT-OP-R Modalities Start: 03/10/21 15:26 Freq: Status: Active Protocol: Document 03/30/21 10:38 [facility] (Rec: 03/30/21 11:22 [facility] [id number]) Hot Pack/Cold Pack Treatment cervical Patient Position Hooklying Treatment Duration (minutes) 10 PT-OP-T Assessment and Plan Start: 03/10/21 15:26 Freq: Status: Active Protocol: Document 03/30/21 10:38 [facility] (Rec: 03/30/21 11:22 [facility] [id number]) Physical Therapy Assessment Goals symptoms Suspension Cord Tier Goal (LTG) Pt will report no more feeling of needing to clear R ear or R jaw pain/uncomfortable popping. LTG Duration 05/11/21 ROM Short Term Goal (STG) Pt will be indep w/HEP for ROM & improving stability & posture STG Duration 04/11/21 Penitentiary Goal (LTG) Pt will have full cervical ROM w/o inc in jaw, head, neck or UE symptoms to allow typical activities w/o inc of symptoms . LTG Duration 05/11/21 activities Suspension Cord Tier Goal (LTG) Pt will be able to do gardening & cleaning needed for her jobs w/o inc in RUE, neck and jaw pain. LTG Duration 05/11/21 Assessment Summary Assessment Pt did well with release on L side w/reporting improvement of symptoms. She does requier cueing for posture and scap movemetn w/exercsies but did well as reps went on. Physical Therapy Plan Frequency and Duration Frequency of Treatment 1-2x/week Duration of Treatment 2 months Plan of Care Start Date 03/11/21 Plan of Care End Date 05/11/21
--- NOTE | 2021-04-01 14:36 | PT.OTN ---
Current Diagnoses Otalgia, right ear (04/01/21) Other abnormal auditory perceptions, right ear (04/01/21) Other specified disorders of right ear (04/01/21) Unspecified temporomandibular joint disorder, unspecified side (04/01/21) Cervicalgia (04/01/21) Muscle weakness (generalized) (04/01/21) Abnormal posture (04/01/21) Physical Therapy Treatment Note PT-OP-A Visit Information Start: 03/10/21 15:26 Freq: Status: Active Protocol: Document 04/01/21 13:46 SP (Rec: 04/01/21 15:59 SP [id number]) Out-Patient Physical Therapy Visit Information Visit Information Visit Type Treatment Note Visit Note Maintain [place] visits d/t insurance limits. Visit Start Time 13:46 Visit Stop Time 14:36 Total Visit Minutes 50 Visit Number 6 Number of RANGE CONSERVATIONIST Visits 1 PT-OP-B Current Condition Start: 03/10/21 15:26 Freq: Status: Active Protocol: Document 03/11/21 09:05 [facility] (Rec: 03/11/21 09:50 [facility] [id number]) Current Condition History of Current Condition Onset Date 2 years Current Complaints R ear uncomfortable History of Current Condition Pt reports it feels like she needs to clear her ear after a flight or swimming. This has been happening for 2 years. she has had lots of tests and dental work. Her hearing is not affected. Pt has had prior root cannels and found that she had a tooth next to the other that had an infection and did another root cannel w/ o help. Pt has done acupuncture in the past with temporary relief. She has tried acupuncture on/off for a while. Pt reports this starts May when she was very sick. She thinks she may have had COVID. Pt reports sometime in September 2019, she had a metallic taste in her mouth and ear felt better til the fall. She went to a doctor d/t ear being painful. Pt reports she has small estation tubes and has had fluid build up. Pt reports MD prescribed her antibiotics for ear infection. She got severe vertigo d/t antibiotics and lasted until 3 days after it went away. Pt reprots now the last 6 months since dental work has been done, it clicks. ENT suggested OTC theatre professor for clenching at night. Pt has been using theatre professor for the past week and thinks maybe it has helped a tiny bit w/neck pain & head tension. Pt reports she hit her head really hard right before getting sick and hit it on a metal bar. It hurt so it stunned me and it made a big lump and had to put arnica and ice on it. Sometimes R arm goes numb with gardening or activities that use the arm a lot. 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 Prior Treatments and Tests IMPRESSION: Prior palpable abnormality corresponds to the normal appearing parotid gland. If clinical concern persists, consider follow-up ultrasound. IMPRESSION: Unremarkable CT of bilateral temporal bones and mastoids without evidence of mastoiditis Chiro did a little TMJ work ( Jose Barreto)- just seemed to make it hurt worse, but no relief acupuncture -helped temporarily w/ear issue or sclerosis. Treatment Goals Patient/Caregiver Goals no have jaw click and not feel like she has to move it around, get back to being able to do more gardening/working more w/B&B PT-OP-C Subjective Start: 03/10/21 15:26 Freq: Status: Active Protocol: Document 04/01/21 13:46 SP (Rec: 04/01/21 15:59 SP [id number]) OP-PT Subjective Patient Comments Patient Comments Arm pain less, did wake her up little bit asleep. Over all better. Jaw feels less tight but find herself manipulating it. Found intral oral uncomfortable but helpful. Neck is cracking on own but feel like a good thing, reposition like more space, not so locked into R lateral neck and pecs. PT-OP-F Manual Assessment Start: 03/10/21 15:26 Freq: Status: Active Protocol: Document 03/11/21 09:05 [facility] (Rec: 03/11/21 09:50 [facility] [id number]) Manual Assessments Soft Tissue Assessment Soft Tissue Mobility Assessment Supraspinatus, scalenes, upper trap, suboccipitals, traps palpation: tightness Pec palpation: increased tone and pain on palpation Temporal: R tight, pt reports feeling good Maseter: R tight along posterior border of jaw PT-OP-J Posture/Palpation/Skin Start: 03/10/21 15:26 Freq: Status: Active Protocol: Document 03/11/21 09:05 [facility] (Rec: 03/11/21 09:50 [facility] [id number]) Posture Evaluation [facility] Postural Classification System [facility] Postural Classifications Posterior/Posterior Vertebral Compression Test 1 Comments Posture Comments slight fwd shoulder and neck PT-OP-K Range of Motion Start: 03/10/21 15:26 Freq: Status: Active Protocol: Document 03/11/21 09:05 [facility] (Rec: 03/11/21 09:50 [facility] [id number]) Cervical Spine Range of Motion Cervical Spine Active Degrees Testing Position Sitting Flexion 57 Extension 60 Rotation Left 47 Rotation Right 46 Lateral Flexion Left 34 Lateral Flexion Right 37 ROM Limitations Soft Tissue Tightness Comments extension: tightness on right side SB R: makes pt want to click R jaw, increased pressure/ fullness in R ear R rot: pt hears noise L rot: pt reports feeling less comfortable compared to R rot TMJ Range of Motion Jaw Openning Jaw Openning (mm) 43 Comments Comments jaw opens well, slight deviation to left PT-OP-L Special Tests Start: 03/10/21 15:26 Freq: Status: Active Protocol: Document 03/11/21 09:05 [facility] (Rec: 03/11/21 09:50 [facility] [id number]) Special Tests Neural Special Tests- Upper Body Median Nerve Tension Test Results Positive Comments In standing, right side Radial Nerve Tension Test Results Negative Comments In standing, right side Ulnar Nerve Tension Test Results Negative Comments In standing, right side Other Special Tests Special Tests Spurlings: negative Alar ligament: negative PT-OP-M Strength Start: 03/10/21 15:26 Freq: Status: Active Protocol: Document 03/11/21 09:05 [facility] (Rec: 03/11/21 09:50 [facility] [id number]) Shoulder Strength Shoulder Manual Muscle Testing Right Flexion 5 Normal Extension 5 Normal Abduction (C5) 4+ Good+ Adduction 5 Normal External Rotation 5 Normal Internal Rotation 5 Normal Comments Elbow ext and flex 5/5 Left Flexion 5 Normal Extension 5 Normal Abduction (C5) 5 Normal Adduction 5 Normal External Rotation 5 Normal Internal Rotation 5 Normal Comments Elbow extension and flexion 5/ 5 PT-OP-Q Treatments Start: 03/10/21 15:26 Freq: Status: Active Protocol: Document 04/01/21 13:46 SP (Rec: 04/01/21 15:59 SP [id number]) Therapeutic Exercises Supine Exercises jaw opening w/ tongue on room mouth Supine Exercise Name added to HEP (give Racabado HEP next tx) Equipment Used used mirror in standing post manual and supine review Reps/Minutes x5 Comments cued light touch tongue on roof mouth, slow open/close mouth Standing Exercises CS alignment, Jaw open/ close Standing Exercise Name CS ext neutral, isometric R lateral pressure mandible open / close Resistance AROM Equipment Used mirror Reps/Minutes 3 min Comments improved decrease clicking small range wall posture Standing Exercise Name roll up w/shoulder ext Side bilateral Resistance reviewed, provided HO Reps/Minutes 3 min Comments cued for alignment corrections Manual Therapy Treatment Soft Tissue Mobilization NUTRITION DIRECTOR Body Location cranial and mandible decompression, suboccipal release Comments good feedback response: feel more open/circulation tingling when used to see a cranial sacral therapist regularly. pec and scap complex Body Location pec minor, major, distal infraspinatus Mobilization Type Strumming,Sustained Pressure, Trigger Point Release Intensity/Depth Moderate Body Position Hooklying Temporalis Body Location R temoralis & cranial fascia Mobilization Type Myofascial Release,Strumming, Sustained Pressure Intensity/Depth Moderate Body Position Hooklying jaw Body Location Intraoral: R masseter, R med pterygoid Mobilization Type Myofascial Release,Sustained Pressure Intensity/Depth Moderate cervical Body Location R SCM, proximal scalene Mobilization Type Rolling,Strumming,Sustained Pressure Intensity/Depth Moderate Body Position Hooklying Joint Mobilizations R GH jt Joint Posterior, inferior glides Grade II Body Position Hooklying PT-OP-R Modalities Start: 03/10/21 15:26 Freq: Status: Active Protocol: Document 03/30/21 10:38 [facility] (Rec: 03/30/21 11:22 [facility] [id number]) Hot Pack/Cold Pack Treatment cervical Patient Position Hooklying Treatment Duration (minutes) 10 PT-OP-T Assessment and Plan Start: 03/10/21 15:26 Freq: Status: Active Protocol: Document 04/01/21 13:46 SP (Rec: 04/01/21 15:59 SP [id number]) Physical Therapy Assessment Goals symptoms Knocker Out Goal (LTG) Pt will report no more feeling of needing to clear R ear or R jaw pain/uncomfortable popping. LTG Duration 12/7/21 ROM Short Term Goal (STG) Pt will be indep w/HEP for ROM & improving stability & posture STG Duration 04/11/21 Prison Goal (LTG) Pt will have full cervical ROM w/o inc in jaw, head, neck or UE symptoms to allow typical activities w/o inc of symptoms . LTG Duration 05/11/21 activities Prison Goal (LTG) Pt will be able to do gardening & cleaning needed for her jobs w/o inc in RUE, neck and jaw pain. LTG Duration 05/11/21 Assessment Summary Assessment Pt responded well to manual STMs: more open, circulation tingling feeling, reviewed jaw ROM in mirror- (provided hand outs next tx), reveiwed DNF and postural opening/ unwinding scap retract/ depression w/ arm extension. Pt felt RUE able to settle depressed more. Physical Therapy Plan Frequency and Duration Frequency of Treatment 1-2x/week Duration of Treatment 2 months Plan of Care Start Date 03/11/21 Plan of Care End Date 05/11/21 Therapeutic Interventions Therapeutic Interventions Home Exercise Program,Joint Mobilizations,Manual Therapy, Neuromuscular Re-education, Patient/Caregiver Education, Self-Care/Home Management,Soft Tissue Mobilization,Taping, Therapeutic Activities, Therapeutic Exercises Modalities Cold Pack/Ice Massage,Electric Stimulation,Hot Packs, Traction- Mechanical, Ultrasound Next Visit Focus/Plan Next Note Type Treatment Note Next Visit Plan Recheck: posture at wall, add [place] ex for home. Initiate prone exercises over ball. POC: Maintain [place] visits d /t insurance limits: try rows & start jaw opening w/toungue on roof of mouth
--- NOTE | 2021-04-08 16:00 | PT-OP ANOTE ---
Pt called 24 hr advance to cancel tomorrow appt due to cold symptoms for safety.
--- NOTE | 2021-04-09 15:20 | PT-OP ANOTE ---
Pt called on 04/09 to cancel 04/12 appt due to tested + for Covid 19. help desk engineer calculated quarantine date until 04/19 when has appt follow up with PT.
--- NOTE | 2021-05-03 12:59 | PT.OTN ---
Current Diagnoses Otalgia, right ear (05/03/21) Other abnormal auditory perceptions, right ear (05/03/21) Other specified disorders of right ear (05/03/21) Unspecified temporomandibular joint disorder, unspecified side (05/03/21) Cervicalgia (05/03/21) Muscle weakness (generalized) (05/03/21) Abnormal posture (05/03/21) Physical Therapy Treatment Note PT-OP-A Visit Information Start: 03/10/21 15:26 Freq: Status: Active Protocol: Document 05/03/21 09:48 [facility] (Rec: 05/03/21 12:10 [facility] [id number]) Out-Patient Physical Therapy Visit Information Visit Information Visit Type Progress Note Visit Note Maintain [place] visits (2 units) d/t insurance limits. Visit Start Time 09:48 Visit Stop Time 10:25 Total Visit Minutes 37 Visit Number 8 Number of CLOTH FRAMER Visits 0 PT-OP-B Current Condition Start: 03/10/21 15:26 Freq: Status: Active Protocol: Document 03/11/21 09:05 [facility] (Rec: 03/11/21 09:50 [facility] [id number]) Current Condition History of Current Condition Onset Date 2 years Current Complaints R ear uncomfortable History of Current Condition Pt reports it feels like she needs to clear her ear after a flight or swimming. This has been happening for 2 years. she has had lots of tests and dental work. Her hearing is not affected. Pt has had prior root cannels and found that she had a tooth next to the other that had an infection and did another root cannel w/ o help. Pt has done acupuncture in the past with temporary relief. She has tried acupuncture on/off for a while. Pt reports this starts May when she was very sick. She thinks she may have had COVID. Pt reports sometime in September 2019, she had a metallic taste in her mouth and ear felt better til the fall. She went to a doctor d/t ear being painful. Pt reports she has small estation tubes and has had fluid build up. Pt reports MD prescribed her antibiotics for ear infection. She got severe vertigo d/t antibiotics and lasted until 3 days after it went away. Pt reprots now the last 6 months since dental work has been done, it clicks. ENT suggested OTC guard lieutenant for clenching at night. Pt has been using guard lieutenant for the past week and thinks maybe it has helped a tiny bit w/neck pain & head tension. Pt reports she hit her head really hard right before getting sick and hit it on a metal bar. It hurt so it stunned me and it made a big lump and had to put arnica and ice on it. Sometimes R arm goes numb with gardening or activities that use the arm a lot. 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 Prior Treatments and Tests IMPRESSION: Prior palpable abnormality corresponds to the normal appearing parotid gland. If clinical concern persists, consider follow-up ultrasound. IMPRESSION: Unremarkable CT of bilateral temporal bones and mastoids without evidence of mastoiditis Chiro did a little TMJ work ( Jose Barreto)- just seemed to make it hurt worse, but no relief acupuncture -helped temporarily w/ear issue or sclerosis. Treatment Goals Patient/Caregiver Goals no have jaw click and not feel like she has to move it around, get back to being able to do more gardening/working more w/B&B PT-OP-C Subjective Start: 03/10/21 15:26 Freq: Status: Active Protocol: Document 05/03/21 09:48 [facility] (Rec: 05/03/21 12:10 [facility] [id number]) OP-PT Subjective Patient Comments Patient Comments Jaw doesn't do the big snaps as much and it only does the little cracks. Frustrated because that it was used to clear her ear. It feels a little bit better. Pt reports her neck has been theron bothering her. She was sore everywhere when CLOTH FRAMER was massaging. She also had a massage about 1.5 weeks ago nd MT said she was really tight and didn't feel like her neck was aligned. Pt reports 4 days after having COVID, she was a lot more achey. PT-OP-F Manual Assessment Start: 03/10/21 15:26 Freq: Status: Active Protocol: Document 03/11/21 09:05 [facility] (Rec: 03/11/21 09:50 [facility] [id number]) Manual Assessments Soft Tissue Assessment Soft Tissue Mobility Assessment Supraspinatus, scalenes, upper trap, suboccipitals, traps palpation: tightness Pec palpation: increased tone and pain on palpation Temporal: R tight, pt reports feeling good Maseter: R tight along posterior border of jaw PT-OP-J Posture/Palpation/Skin Start: 03/10/21 15:26 Freq: Status: Active Protocol: Document 03/11/21 09:05 [facility] (Rec: 03/11/21 09:50 [facility] [id number]) Posture Evaluation [facility] Postural Classification System [facility] Postural Classifications Posterior/Posterior Vertebral Compression Test 1 Comments Posture Comments slight fwd shoulder and neck PT-OP-K Range of Motion Start: 03/10/21 15:26 Freq: Status: Active Protocol: Document 05/03/21 09:48 [facility] (Rec: 05/03/21 12:10 [facility] [id number]) Cervical Spine Range of Motion Cervical Spine Active Degrees Testing Position Sitting Flexion 50 Extension 49 Rotation Left 41 Rotation Right 41 Lateral Flexion Left 25 Lateral Flexion Right 45 ROM Limitations Soft Tissue Tightness Comments extension: tightness post SB L: discomfort L side SB R: pull L R rot: makes her want to clear ear L rot: makes want to clear ear PT-OP-L Special Tests Start: 03/10/21 15:26 Freq: Status: Active Protocol: Document 03/11/21 09:05 [facility] (Rec: 03/11/21 09:50 [facility] [id number]) Special Tests Neural Special Tests- Upper Body Median Nerve Tension Test Results Positive Comments In standing, right side Radial Nerve Tension Test Results Negative Comments In standing, right side Ulnar Nerve Tension Test Results Negative Comments In standing, right side Other Special Tests Special Tests Spurlings: negative Alar ligament: negative PT-OP-M Strength Start: 03/10/21 15:26 Freq: Status: Active Protocol: Document 03/11/21 09:05 [facility] (Rec: 03/11/21 09:50 [facility] [id number]) Shoulder Strength Shoulder Manual Muscle Testing Right Flexion 5 Normal Extension 5 Normal Abduction (C5) 4+ Good+ Adduction 5 Normal External Rotation 5 Normal Internal Rotation 5 Normal Comments Elbow ext and flex 5/5 Left Flexion 5 Normal Extension 5 Normal Abduction (C5) 5 Normal Adduction 5 Normal External Rotation 5 Normal Internal Rotation 5 Normal Comments Elbow extension and flexion 5/ 5 PT-OP-Q Treatments Start: 03/10/21 15:26 Freq: Status: Active Protocol: Document 05/03/21 09:48 [facility] (Rec: 05/03/21 12:10 [facility] [id number]) Manual Therapy Treatment Soft Tissue Mobilization cervical Body Location B scalenes SCM Mobilization Type Rolling,Sustained Pressure Intensity/Depth Moderate Body Position Hooklying Joint Mobilizations Ribs Joint L Comments 1. rib 5 inf FM & PA 2. ribs 1& 2 AP & inf FM SC Joint L Direction inf FM cervical Comments 1. C1 transverse L PT-OP-R Modalities Start: 03/10/21 15:26 Freq: Status: Active Protocol: Document 03/30/21 10:38 [facility] (Rec: 03/30/21 11:22 [facility] [id number]) Hot Pack/Cold Pack Treatment cervical Patient Position Hooklying Treatment Duration (minutes) 10 PT-OP-T Assessment and Plan Start: 03/10/21 15:26 Freq: Status: Active Protocol: Document 05/03/21 09:48 [facility] (Rec: 05/03/21 12:10 [facility] [id number]) Physical Therapy Assessment Goals symptoms Penitentiary Goal (LTG) Pt will report no more feeling of needing to clear R ear or R jaw pain/uncomfortable popping. 05/03-still difficult 04/27/21: continues to have feeling of popping jaw for releases and feels better. LTG Duration 07/03/21 ROM Short Term Goal (STG) Pt will be indep w/HEP for ROM & improving stability & posture STG Duration achieved progressing and working on form as needed Stave Planer Tender Goal (LTG) Pt will have full cervical ROM w/o inc in jaw, head, neck or UE symptoms to allow typical activities w/o inc of symptoms . 05/03-neck still limited w/inc in symptoms & inc in symptoms w/jaw openin LTG Duration 07/03/21 activities Penitentiary Goal (LTG) Pt will be able to do gardening & cleaning needed for her jobs w/o inc in RUE, neck and jaw pain. LTG Duration 07/03/21 Assessment Summary Assessment Pt has made limited progress d /t ability to attend limited sessions d/t getting COVID. Pt was seen 04/27 and prior to that 04/01. She was doing better prior to getting COVID but has been more fatigued and achey. Neck motions can still limited w/worsening symptoms. She would benefit from cont PT in order to improve symptoms Physical Therapy Plan Frequency and Duration Frequency of Treatment 1-2x/week Duration of Treatment 2 months Plan of Care Start Date 05/03/21 Plan of Care End Date 07/03/21 Therapeutic Interventions Therapeutic Interventions Home Exercise Program,Joint Mobilizations,Manual Therapy, Neuromuscular Re-education, Patient/Caregiver Education, Self-Care/Home Management,Soft Tissue Mobilization,Taping, Therapeutic Activities, Therapeutic Exercises Modalities Cold Pack/Ice Massage,Electric Stimulation,Hot Packs, Traction- Mechanical, Ultrasound Next Visit Focus/Plan Next Note Type Treatment Note Next Visit Plan Recheck: posture at wall, add [place] ex for home. Initiate prone exercises over ball. POC: Maintain [place] visits d /t insurance limits: try rows & start jaw opening w/toungue on roof of mouth
--- NOTE | 2021-05-03 12:59 | PT.OPPOC ---
Physical, Occupational & Speech Therapy At [facility] Current Diagnoses Otalgia, right ear (05/03/21) Other abnormal auditory perceptions, right ear (05/03/21) Other specified disorders of right ear (05/03/21) Unspecified temporomandibular joint disorder, unspecified side (05/03/21) Cervicalgia (05/03/21) Muscle weakness (generalized) (05/03/21) Abnormal posture (05/03/21) Visit Care Team Role Provider Type Leno Gray DO Primary Care Provider Physician Specialty: Family Practice Address: [address] [place] [address], [id number] Email: Seng Griffin MD Attending Provider Physician Referring Provider Specialty: Ear, Nose, Throat Address: [address] [place] [id number] Email: [email or web address] Plan Of Care PT-OP-T Assessment and Plan Start: 03/10/21 15:26 Freq: Status: Active Protocol: Document 05/03/21 09:48 [facility] (Rec: 05/03/21 12:10 [facility] [id number]) Physical Therapy Assessment Goals symptoms Assisted Goal (LTG) Pt will report no more feeling of needing to clear R ear or R jaw pain/uncomfortable popping. 05/03-still difficult 04/27/21: continues to have feeling of popping jaw for releases and feels better. LTG Duration 07/03/21 ROM Short Term Goal (STG) Pt will be indep w/HEP for ROM & improving stability & posture STG Duration achieved progressing and working on form as needed Aerospace Mechanic Goal (LTG) Pt will have full cervical ROM w/o inc in jaw, head, neck or UE symptoms to allow typical activities w/o inc of symptoms . 05/03-neck still limited w/inc in symptoms & inc in symptoms w/jaw openin LTG Duration 07/03/21 activities Aerospace Mechanic Goal (LTG) Pt will be able to do gardening & cleaning needed for her jobs w/o inc in RUE, neck and jaw pain. LTG Duration 07/03/21 Assessment Summary Assessment Pt has made limited progress d /t ability to attend limited sessions d/t getting COVID. Pt was seen 04/27 and prior to that 04/01. She was doing better prior to getting COVID but has been more fatigued and achey. Neck motions can still limited w/worsening symptoms. She would benefit from cont PT in order to improve symptoms Physical Therapy Plan Frequency and Duration Frequency of Treatment 1-2x/week Duration of Treatment 2 months Plan of Care Start Date 05/03/21 Plan of Care End Date 07/03/21 Therapeutic Interventions Therapeutic Interventions Home Exercise Program,Joint Mobilizations,Manual Therapy, Neuromuscular Re-education, Patient/Caregiver Education, Self-Care/Home Management,Soft Tissue Mobilization,Taping, Therapeutic Activities, Therapeutic Exercises Modalities Cold Pack/Ice Massage,Electric Stimulation,Hot Packs, Traction- Mechanical, Ultrasound Next Visit Focus/Plan Next Note Type Treatment Note Next Visit Plan Recheck: posture at wall, add [place] ex for home. Initiate prone exercises over ball. POC: Maintain [place] visits d /t insurance limits: try rows & start jaw opening w/toungue on roof of mouth Plan of Care Dates Plan of Care Start Date 05/03/21 Plan of Care End Date 07/03/21 Electronically Signed by: Taya Griffin, PT 05/03/21 [id number] Please Sign and Return: I have reviewed this Plan of Care and certify that the skilled therapy services above are required to meet the patient?s needs. Physician Signature Date Printed Name and Credentials Clinical Instructor Signature Printed Name and Credentials
--- NOTE | 2021-05-06 14:01 | PT.OTN ---
Current Diagnoses Otalgia, right ear (05/06/21) Other abnormal auditory perceptions, right ear (05/06/21) Other specified disorders of right ear (05/06/21) Unspecified temporomandibular joint disorder, unspecified side (05/06/21) Cervicalgia (05/06/21) Muscle weakness (generalized) (05/06/21) Abnormal posture (05/06/21) Physical Therapy Treatment Note PT-OP-A Visit Information Start: 03/10/21 15:26 Freq: Status: Active Protocol: Document 05/06/21 13:35 [facility] (Rec: 05/06/21 14:01 [facility] [id number]) Out-Patient Physical Therapy Visit Information Visit Information Visit Type Treatment Note Visit Note Maintain [place] visits (2 units) d/t insurance limits. Visit Start Time 09:46 Visit Stop Time 10:33 Total Visit Minutes 47 Visit Number 9 Number of MANAGER CRITICAL CARE UNIT Visits 0 PT-OP-B Current Condition Start: 03/10/21 15:26 Freq: Status: Active Protocol: Document 03/11/21 09:05 [facility] (Rec: 03/11/21 09:50 [facility] [id number]) Current Condition History of Current Condition Onset Date 2 years Current Complaints R ear uncomfortable History of Current Condition Pt reports it feels like she needs to clear her ear after a flight or swimming. This has been happening for 2 years. she has had lots of tests and dental work. Her hearing is not affected. Pt has had prior root cannels and found that she had a tooth next to the other that had an infection and did another root cannel w/ o help. Pt has done acupuncture in the past with temporary relief. She has tried acupuncture on/off for a while. Pt reports this starts May when she was very sick. She thinks she may have had COVID. Pt reports sometime in September 2019, she had a metallic taste in her mouth and ear felt better til the fall. She went to a doctor d/t ear being painful. Pt reports she has small estation tubes and has had fluid build up. Pt reports MD prescribed her antibiotics for ear infection. She got severe vertigo d/t antibiotics and lasted until 3 days after it went away. Pt reprots now the last 6 months since dental work has been done, it clicks. ENT suggested OTC plant security guard for clenching at night. Pt has been using plant security guard for the past week and thinks maybe it has helped a tiny bit w/neck pain & head tension. Pt reports she hit her head really hard right before getting sick and hit it on a metal bar. It hurt so it stunned me and it made a big lump and had to put arnica and ice on it. Sometimes R arm goes numb with gardening or activities that use the arm a lot. 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 Prior Treatments and Tests IMPRESSION: Prior palpable abnormality corresponds to the normal appearing parotid gland. If clinical concern persists, consider follow-up ultrasound. IMPRESSION: Unremarkable CT of bilateral temporal bones and mastoids without evidence of mastoiditis Chiro did a little TMJ work ( Jose Barreto)- just seemed to make it hurt worse, but no relief acupuncture -helped temporarily w/ear issue or sclerosis. Treatment Goals Patient/Caregiver Goals no have jaw click and not feel like she has to move it around, get back to being able to do more gardening/working more w/B&B PT-OP-C Subjective Start: 03/10/21 15:26 Freq: Status: Active Protocol: Document 05/06/21 13:35 [facility] (Rec: 05/06/21 14:01 [facility] [id number]) OP-PT Subjective Patient Comments Patient Comments Pt reports she is still feeling like its hard to get a full breath and has been rubbing her L diaphram a lot d /t feeling like it will help. Notes LB still painful PT-OP-F Manual Assessment Start: 03/10/21 15:26 Freq: Status: Active Protocol: Document 03/11/21 09:05 [facility] (Rec: 03/11/21 09:50 [facility] [id number]) Manual Assessments Soft Tissue Assessment Soft Tissue Mobility Assessment Supraspinatus, scalenes, upper trap, suboccipitals, traps palpation: tightness Pec palpation: increased tone and pain on palpation Temporal: R tight, pt reports feeling good Maseter: R tight along posterior border of jaw PT-OP-J Posture/Palpation/Skin Start: 03/10/21 15:26 Freq: Status: Active Protocol: Document 03/11/21 09:05 [facility] (Rec: 03/11/21 09:50 [facility] [id number]) Posture Evaluation [facility] Postural Classification System [place] Postural Classifications Posterior/Posterior Vertebral Compression Test 1 Comments Posture Comments slight fwd shoulder and neck PT-OP-K Range of Motion Start: 03/10/21 15:26 Freq: Status: Active Protocol: Document 05/03/21 09:48 [facility] (Rec: 05/03/21 12:10 [facility] [id number]) Cervical Spine Range of Motion Cervical Spine Active Degrees Testing Position Sitting Flexion 50 Extension 49 Rotation Left 41 Rotation Right 41 Lateral Flexion Left 25 Lateral Flexion Right 45 ROM Limitations Soft Tissue Tightness Comments extension: tightness post SB L: discomfort L side SB R: pull L R rot: makes her want to clear ear L rot: makes want to clear ear PT-OP-L Special Tests Start: 03/10/21 15:26 Freq: Status: Active Protocol: Document 03/11/21 09:05 [facility] (Rec: 03/11/21 09:50 [facility] [id number]) Special Tests Neural Special Tests- Upper Body Median Nerve Tension Test Results Positive Comments In standing, right side Radial Nerve Tension Test Results Negative Comments In standing, right side Ulnar Nerve Tension Test Results Negative Comments In standing, right side Other Special Tests Special Tests Spurlings: negative Alar ligament: negative PT-OP-M Strength Start: 03/10/21 15:26 Freq: Status: Active Protocol: Document 03/11/21 09:05 [facility] (Rec: 03/11/21 09:50 [facility] [id number]) Shoulder Strength Shoulder Manual Muscle Testing Right Flexion 5 Normal Extension 5 Normal Abduction (C5) 4+ Good+ Adduction 5 Normal External Rotation 5 Normal Internal Rotation 5 Normal Comments Elbow ext and flex 5/5 Left Flexion 5 Normal Extension 5 Normal Abduction (C5) 5 Normal Adduction 5 Normal External Rotation 5 Normal Internal Rotation 5 Normal Comments Elbow extension and flexion 5/ 5 PT-OP-Q Treatments Start: 03/10/21 15:26 Freq: Status: Active Protocol: Document 05/06/21 13:35 [facility] (Rec: 05/06/21 14:01 [facility] [id number]) Therapeutic Exercises Sidelying Exercises open book Side bilateral Reps/Minutes 5 Standing Exercises ext Standing Exercise Name 1. rows Side bilateral Equipment Used L2 Reps/Minutes 15 Comments cues for scap movement & no lift of ant ribcage wall posture Standing Exercise Name wall roll up progressed to mult reps setting scap position Side bilateral Reps/Minutes 6 min Comments cues for segmental roll up w/ mult reps Other Exercises quadruped Other Exercise Name bird dog ( UE/ LE lift) Side bilateral Reps/Minutes 2x10 Comments max cues for head position & trunk position & scap position Manual Therapy Treatment Soft Tissue Mobilization pec and scap complex Body Location post scap mm- R traps, rhomboids Mobilization Type Strumming,Sustained Pressure, Trigger Point Release Intensity/Depth Moderate Body Position Hooklying Self-Care/Home Management Treatment Education Other Education edu to discuss w/MD re: feeling tightness in diaphram and sometimes feeling like its hard to get ab reath and inc back pain since COVID-edu that her primary MD does OMT and that may be helpful PT-OP-R Modalities Start: 03/10/21 15:26 Freq: Status: Active Protocol: Document 05/06/21 13:35 [facility] (Rec: 05/06/21 14:01 [facility] [id number]) Hot Pack/Cold Pack Treatment cervical Location cervical and lumbar Patient Position Hooklying Treatment Duration (minutes) 10 PT-OP-T Assessment and Plan Start: 03/10/21 15:26 Freq: Status: Active Protocol: Document 05/06/21 13:35 [facility] (Rec: 05/06/21 14:01 [facility] [id number]) Physical Therapy Assessment Goals symptoms Concrete Boom Operator Goal (LTG) Pt will report no more feeling of needing to clear R ear or R jaw pain/uncomfortable popping. 05/03-still difficult 04/27/21: continues to have feeling of popping jaw for releases and feels better. LTG Duration 07/03/21 ROM Short Term Goal (STG) Pt will be indep w/HEP for ROM & improving stability & posture STG Duration achieved progressing and working on form as needed Concrete Boom Operator Goal (LTG) Pt will have full cervical ROM w/o inc in jaw, head, neck or UE symptoms to allow typical activities w/o inc of symptoms . 05/03-neck still limited w/inc in symptoms & inc in symptoms w/jaw openin LTG Duration 07/03/21 activities Retirement Goal (LTG) Pt will be able to do gardening & cleaning needed for her jobs w/o inc in RUE, neck and jaw pain. LTG Duration 07/03/21 Assessment Summary Assessment Pt showed better demonstration of exercises after mult reps w/cues. She did wing her shoulders a lot w/quadruped position but required max cues for positioning. Pt was c/o difficulty getting full breath at start of session which improved w/manual treatment along w/pelvic shear L less. She also have improved scap positon, which put UT and cervical mm on less tension. Physical Therapy Plan Frequency and Duration Frequency of Treatment 1-2x/week Duration of Treatment 2 months Plan of Care Start Date 05/03/21 Plan of Care End Date 07/03/21 Next Visit Focus/Plan Next Note Type Treatment Note Next Visit Plan [place] exercises for home, review rows & wall posture
--- NOTE | 2021-05-11 10:27 | PT.OTN ---
Current Diagnoses Otalgia, right ear (05/10/21) Other abnormal auditory perceptions, right ear (05/10/21) Other specified disorders of right ear (05/10/21) Unspecified temporomandibular joint disorder, unspecified side (05/10/21) Cervicalgia (05/10/21) Muscle weakness (generalized) (05/10/21) Abnormal posture (05/10/21) Physical Therapy Treatment Note PT-OP-A Visit Information Start: 03/10/21 15:26 Freq: Status: Active Protocol: Document 05/10/21 13:04 [facility] (Rec: 05/10/21 14:47 [facility] [id number]) Out-Patient Physical Therapy Visit Information Visit Information Visit Type Treatment Note Visit Note SPTA Gerry lead treatment and provided education under direct supervision and instruction of COMPENSATION PROGRAMS MANAGER Malree. Maintain [place] visits (2 units) d/t insurance limits. Visit Start Time 13:04 Visit Stop Time 13:45 Total Visit Minutes 41 Visit Number 10 Number of COMPENSATION PROGRAMS MANAGER Visits 1 PT-OP-B Current Condition Start: 03/10/21 15:26 Freq: Status: Active Protocol: Document 03/11/21 09:05 [facility] (Rec: 03/11/21 09:50 [facility] [id number]) Current Condition History of Current Condition Onset Date 2 years Current Complaints R ear uncomfortable History of Current Condition Pt reports it feels like she needs to clear her ear after a flight or swimming. This has been happening for 2 years. she has had lots of tests and dental work. Her hearing is not affected. Pt has had prior root cannels and found that she had a tooth next to the other that had an infection and did another root cannel w/ o help. Pt has done acupuncture in the past with temporary relief. She has tried acupuncture on/off for a while. Pt reports this starts May when she was very sick. She thinks she may have had COVID. Pt reports sometime in September 2019, she had a metallic taste in her mouth and ear felt better til the fall. She went to a doctor d/t ear being painful. Pt reports she has small estation tubes and has had fluid build up. Pt reports MD prescribed her antibiotics for ear infection. She got severe vertigo d/t antibiotics and lasted until 3 days after it went away. Pt reprots now the last 6 months since dental work has been done, it clicks. ENT suggested OTC night club manager for clenching at night. Pt has been using night club manager for the past week and thinks maybe it has helped a tiny bit w/neck pain & head tension. Pt reports she hit her head really hard right before getting sick and hit it on a metal bar. It hurt so it stunned me and it made a big lump and had to put arnica and ice on it. Sometimes R arm goes numb with gardening or activities that use the arm a lot. 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 Prior Treatments and Tests IMPRESSION: Prior palpable abnormality corresponds to the normal appearing parotid gland. If clinical concern persists, consider follow-up ultrasound. IMPRESSION: Unremarkable CT of bilateral temporal bones and mastoids without evidence of mastoiditis Chiro did a little TMJ work ( Jose Barreto)- just seemed to make it hurt worse, but no relief acupuncture -helped temporarily w/ear issue or sclerosis. Treatment Goals Patient/Caregiver Goals no have jaw click and not feel like she has to move it around, get back to being able to do more gardening/working more w/B&B PT-OP-C Subjective Start: 03/10/21 15:26 Freq: Status: Active Protocol: Document 05/10/21 13:04 [facility] (Rec: 05/11/21 08:10 [facility] [id number]) OP-PT Subjective Patient Comments Patient Comments Pt reports feeling like something is pressing on her diaphragm so I can't get a full breath. Indicated that she has intense tighness and pain along thoracis paraspinals, rhomboids, traps. Pt concerned that this may be a result of having had COVID. Pt said she is going to her chiropractor today after this tx. PT-OP-F Manual Assessment Start: 03/10/21 15:26 Freq: Status: Active Protocol: Document 03/11/21 09:05 [facility] (Rec: 03/11/21 09:50 [facility] [id number]) Manual Assessments Soft Tissue Assessment Soft Tissue Mobility Assessment Supraspinatus, scalenes, upper trap, suboccipitals, traps palpation: tightness Pec palpation: increased tone and pain on palpation Temporal: R tight, pt reports feeling good Maseter: R tight along posterior border of jaw PT-OP-J Posture/Palpation/Skin Start: 03/10/21 15:26 Freq: Status: Active Protocol: Document 03/11/21 09:05 [facility] (Rec: 03/11/21 09:50 [facility] [id number]) Posture Evaluation [facility] Postural Classification System [facility] Postural Classifications Posterior/Posterior Vertebral Compression Test 1 Comments Posture Comments slight fwd shoulder and neck PT-OP-K Range of Motion Start: 03/10/21 15:26 Freq: Status: Active Protocol: Document 05/03/21 09:48 [facility] (Rec: 05/03/21 12:10 [facility] [id number]) Cervical Spine Range of Motion Cervical Spine Active Degrees Testing Position Sitting Flexion 50 Extension 49 Rotation Left 41 Rotation Right 41 Lateral Flexion Left 25 Lateral Flexion Right 45 ROM Limitations Soft Tissue Tightness Comments extension: tightness post SB L: discomfort L side SB R: pull L R rot: makes her want to clear ear L rot: makes want to clear ear PT-OP-L Special Tests Start: 03/10/21 15:26 Freq: Status: Active Protocol: Document 03/11/21 09:05 [facility] (Rec: 03/11/21 09:50 [facility] [id number]) Special Tests Neural Special Tests- Upper Body Median Nerve Tension Test Results Positive Comments In standing, right side Radial Nerve Tension Test Results Negative Comments In standing, right side Ulnar Nerve Tension Test Results Negative Comments In standing, right side Other Special Tests Special Tests Spurlings: negative Alar ligament: negative PT-OP-M Strength Start: 03/10/21 15:26 Freq: Status: Active Protocol: Document 03/11/21 09:05 [facility] (Rec: 03/11/21 09:50 [facility] [id number]) Shoulder Strength Shoulder Manual Muscle Testing Right Flexion 5 Normal Extension 5 Normal Abduction (C5) 4+ Good+ Adduction 5 Normal External Rotation 5 Normal Internal Rotation 5 Normal Comments Elbow ext and flex 5/5 Left Flexion 5 Normal Extension 5 Normal Abduction (C5) 5 Normal Adduction 5 Normal External Rotation 5 Normal Internal Rotation 5 Normal Comments Elbow extension and flexion 5/ 5 PT-OP-Q Treatments Start: 03/10/21 15:26 Freq: Status: Active Protocol: Document 05/10/21 13:04 [facility] (Rec: 05/11/21 08:10 [facility] [id number]) Therapeutic Exercises Standing Exercises Thoracic Extension Stretch Standing Exercise Name over half roll, ~T8, in [place] Side bilateral Resistance AROM Equipment Used rolled towel > half roll Reps/Minutes 2 min Comments Cues to not arch over noodle, relax pelvis. Good feedback response. ext Standing Exercise Name shoulder extension Side bilateral Equipment Used L2 TB Reps/Minutes 15x Comments cues for erect posture and depressed shoulders Manual Therapy Treatment Soft Tissue Mobilization Rhomboid, infraspinatus, Lev scap, Trap Mobilization Type Myofascial Release,Strumming, Sustained Pressure,Trigger Point Release Intensity/Depth Moderate Body Position Prone and sidelying Comments Palpated intense tightness along medial border of scapula into levator scapula. Released trigger points B. R>L . Good Pt feedback. PT-OP-R Modalities Start: 03/10/21 15:26 Freq: Status: Active Protocol: Document 05/06/21 13:35 [facility] (Rec: 05/06/21 14:01 [facility] [id number]) Hot Pack/Cold Pack Treatment cervical Location cervical and lumbar Patient Position Hooklying Treatment Duration (minutes) 10 PT-OP-T Assessment and Plan Start: 03/10/21 15:26 Freq: Status: Active Protocol: Document 05/10/21 13:04 [facility] (Rec: 05/11/21 08:10 [facility] [id number]) Physical Therapy Assessment Goals symptoms Knife Operator Goal (LTG) Pt will report no more feeling of needing to clear R ear or R jaw pain/uncomfortable popping. 05/03-still difficult 04/27/21: continues to have feeling of popping jaw for releases and feels better. LTG Duration 07/03/21 ROM Short Term Goal (STG) Pt will be indep w/HEP for ROM & improving stability & posture STG Duration achieved progressing and working on form as needed [facility] Goal (LTG) Pt will have full cervical ROM w/o inc in jaw, head, neck or UE symptoms to allow typical activities w/o inc of symptoms . 05/03-neck still limited w/inc in symptoms & inc in symptoms w/jaw openin LTG Duration 07/03/21 activities Knife Operator Goal (LTG) Pt will be able to do gardening & cleaning needed for her jobs w/o inc in RUE, neck and jaw pain. LTG Duration 07/03/21 Assessment Summary Assessment Pt arrived c/o pain in her upper mid back, and something pressing against her diaphragm so it's hard to get a full breath. Thoracic extension stretch over half pool noodle to open anterior thracic and abdominals. Pt reported produced good stretch across pecs and abdominals. Palpated intense tightness along medial border of scapula . Tightness resolved with manual therapy, but Pt. still complained of soreness in region. Performed shoulder extensions with TB with cues for depressed shoulders and erect posture. Pt reported feeling looser in her back, but c/o tightness/ soreness across her pecs at end of tx. Physical Therapy Plan Frequency and Duration Frequency of Treatment 1-2x/week Duration of Treatment 2 months Plan of Care Start Date 05/03/21 Plan of Care End Date 07/03/21 Therapeutic Interventions Therapeutic Interventions Home Exercise Program,Joint Mobilizations,Manual Therapy, Neuromuscular Re-education, Patient/Caregiver Education, Self-Care/Home Management,Soft Tissue Mobilization,Taping, Therapeutic Activities, Therapeutic Exercises Modalities Cold Pack/Ice Massage,Electric Stimulation,Hot Packs, Traction- Mechanical, Ultrasound Next Visit Focus/Plan Next Note Type Treatment Note Next Visit Plan Maintain [place] visits (2 units) d/t insurance limits. [place] breathing. I,T,W, half X on pool noodle [place] exercises for home, review rows & wall posture
--- NOTE | 2021-05-18 13:26 | PT.OTN ---
Current Diagnoses Otalgia, right ear (05/18/21) Other abnormal auditory perceptions, right ear (05/18/21) Other specified disorders of right ear (05/18/21) Unspecified temporomandibular joint disorder, unspecified side (05/18/21) Cervicalgia (05/18/21) Muscle weakness (generalized) (05/18/21) Abnormal posture (05/18/21) Physical Therapy Treatment Note PT-OP-A Visit Information Start: 03/10/21 15:26 Freq: Status: Active Protocol: Document 05/18/21 13:09 [facility] (Rec: 05/18/21 13:26 [facility] [id number]) Out-Patient Physical Therapy Visit Information Visit Information Visit Type Treatment Note Visit Note Maintain [place] visits (2 units) d/t insurance limits. 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 This has been happening for 2 years. she has had lots of tests and dental work. Her hearing is not affected. Pt has had prior root cannels and found that she had a tooth next to the other that had an infection and did another root cannel w/ o help. Pt has done acupuncture in the past with temporary relief. She has tried acupuncture on/off for a while. Pt reports this starts May when she was very sick. She thinks she may have had COVID. Pt reports sometime in September 2019, she had a metallic taste in her mouth and ear felt better til the fall. She went to a doctor d/t ear being painful. Pt reports she has small estation tubes and has had fluid build up. Pt reports MD prescribed her antibiotics for ear infection. She got severe vertigo d/t antibiotics and lasted until 3 days after it went away. Pt reprots now the last 6 months since dental work has been done, it clicks. ENT suggested OTC inspector type for clenching at night. Pt has been using inspector type for the past week and thinks maybe it has helped a tiny bit w/neck pain & head tension. Pt reports she hit her head really hard right before getting sick and hit it on a metal bar. It hurt so it stunned me and it made a big lump and had to put arnica and ice on it. Sometimes R arm goes numb with gardening or activities that use the arm a lot. 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 Prior Treatments and Tests IMPRESSION: Prior palpable abnormality corresponds to the normal appearing parotid gland. If clinical concern persists, consider follow-up ultrasound. IMPRESSION: Unremarkable CT of bilateral temporal bones and mastoids without evidence of mastoiditis Chiro did a little TMJ work ( Jose Barreto)- just seemed to make it hurt worse, but no relief acupuncture -helped temporarily w/ear issue or sclerosis. Treatment Goals Patient/Caregiver Goals no have jaw click and not feel like she has to move it around, get back to being able to do more gardening/working more w/B&B PT-OP-C Subjective Start: 03/10/21 15:26 Freq: Status: Active Protocol: Document 05/18/21 13:09 [facility] (Rec: 05/18/21 13:26 [facility] [id number]) OP-PT Subjective Patient Comments Patient Comments Pt reports she went to [place] for a work trip and felt so much better in the dryness. Notes the pain was better and her breathing was better. [facility] PT-OP-F Manual Assessment Start: 03/10/21 15:26 Freq: Status: Active Protocol: Document 03/11/21 09:05 [facility] (Rec: 03/11/21 09:50 [facility] [id number]) Manual Assessments Soft Tissue Assessment Soft Tissue Mobility Assessment Supraspinatus, scalenes, upper trap, suboccipitals, traps palpation: tightness Pec palpation: increased tone and pain on palpation Temporal: R tight, pt reports feeling good Maseter: R tight along posterior border of jaw PT-OP-J Posture/Palpation/Skin Start: 03/10/21 15:26 Freq: Status: Active Protocol: Document 03/11/21 09:05 [facility] (Rec: 03/11/21 09:50 [facility] [id number]) Posture Evaluation [facility] Postural Classification System [facility] Postural Classifications Posterior/Posterior Vertebral Compression Test 1 Comments Posture Comments slight fwd shoulder and neck PT-OP-K Range of Motion Start: 03/10/21 15:26 Freq: Status: Active Protocol: Document 05/03/21 09:48 [facility] (Rec: 05/03/21 12:10 [facility] [id number]) Cervical Spine Range of Motion Cervical Spine Active Degrees Testing Position Sitting Flexion 50 Extension 49 Rotation Left 41 Rotation Right 41 Lateral Flexion Left 25 Lateral Flexion Right 45 ROM Limitations Soft Tissue Tightness Comments extension: tightness post SB L: discomfort L side SB R: pull L R rot: makes her want to clear ear L rot: makes want to clear ear PT-OP-L Special Tests Start: 03/10/21 15:26 Freq: Status: Active Protocol: Document 03/11/21 09:05 [facility] (Rec: 03/11/21 09:50 [facility] [id number]) Special Tests Neural Special Tests- Upper Body Median Nerve Tension Test Results Positive Comments In standing, right side Radial Nerve Tension Test Results Negative Comments In standing, right side Ulnar Nerve Tension Test Results Negative Comments In standing, right side Other Special Tests Special Tests Spurlings: negative Alar ligament: negative PT-OP-M Strength Start: 03/10/21 15:26 Freq: Status: Active Protocol: Document 03/11/21 09:05 [facility] (Rec: 03/11/21 09:50 [facility] [id number]) Shoulder Strength Shoulder Manual Muscle Testing Right Flexion 5 Normal Extension 5 Normal Abduction (C5) 4+ Good+ Adduction 5 Normal External Rotation 5 Normal Internal Rotation 5 Normal Comments Elbow ext and flex 5/5 Left Flexion 5 Normal Extension 5 Normal Abduction (C5) 5 Normal Adduction 5 Normal External Rotation 5 Normal Internal Rotation 5 Normal Comments Elbow extension and flexion 5/ 5 PT-OP-Q Treatments Start: 03/10/21 15:26 Freq: Status: Active Protocol: Document 05/18/21 13:09 [facility] (Rec: 05/18/21 13:26 [facility] [id number]) Manual Therapy Treatment Soft Tissue Mobilization cervical Body Location R scalenes & SCM & R UT Mobilization Type Rolling,Sustained Pressure Intensity/Depth Moderate Body Position Hooklying Joint Mobilizations thoracic Comments 1. Ribs Comments 1. R AP 1-3 2. R depression 1-3 FM 3. depression 6 R FM PT-OP-R Modalities Start: 03/10/21 15:26 Freq: Status: Active Protocol: Document 05/06/21 13:35 [facility] (Rec: 05/06/21 14:01 [facility] [id number]) Hot Pack/Cold Pack Treatment cervical Location cervical and lumbar Patient Position Hooklying Treatment Duration (minutes) 10 PT-OP-T Assessment and Plan Start: 03/10/21 15:26 Freq: Status: Active Protocol: Document 05/18/21 13:09 [facility] (Rec: 05/18/21 13:26 [facility] [id number]) Physical Therapy Assessment Goals symptoms Correction Goal (LTG) Pt will report no more feeling of needing to clear R ear or R jaw pain/uncomfortable popping. 05/03-still difficult 04/27/21: continues to have feeling of popping jaw for releases and feels better. LTG Duration 07/03/21 ROM Short Term Goal (STG) Pt will be indep w/HEP for ROM & improving stability & posture STG Duration achieved progressing and working on form as needed Correction Goal (LTG) Pt will have full cervical ROM w/o inc in jaw, head, neck or UE symptoms to allow typical activities w/o inc of symptoms . 05/03-neck still limited w/inc in symptoms & inc in symptoms w/jaw openin LTG Duration 07/03/21 activities Correction Goal (LTG) Pt will be able to do gardening & cleaning needed for her jobs w/o inc in RUE, neck and jaw pain. LTG Duration 07/03/21 Assessment Summary Assessment Pt reported imrpovement in ear pressure with pressure on UT and ribcage especially ribs 1- 3. She had improved cervical rotation from 50% B to 60% on L and 70% on R. She also had improved thoracic rotation w/ dec pain. ribcage elevation on R likely contributes to ear discomofrt as it improves w/ palpation. Physical Therapy Plan Next Visit Focus/Plan Next Note Type Treatment Note Next Visit Plan Maintain [place] visits (2 units) d/t insurance limits. cont to work on ribcage mobility
--- NOTE | 2021-05-21 15:09 | PT.OTN ---
Current Diagnoses Otalgia, right ear (05/21/21) Other abnormal auditory perceptions, right ear (05/21/21) Other specified disorders of right ear (05/21/21) Unspecified temporomandibular joint disorder, unspecified side (05/21/21) Cervicalgia (05/21/21) Muscle weakness (generalized) (05/21/21) Abnormal posture (05/21/21) Physical Therapy Treatment Note PT-OP-A Visit Information Start: 03/10/21 15:26 Freq: Status: Active Protocol: Document 05/21/21 14:32 [facility] (Rec: 05/21/21 15:37 [facility] [id number]) Out-Patient Physical Therapy Visit Information Visit Information Visit Type Treatment Note Visit Note Maintain [place] visits (2 units) d/t insurance limits. 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 (Rec: 03/11/21 09:50 [facility] [id number]) Current Condition History of Current Condition Onset Date 2 years Current Complaints R ear uncomfortable History of Current Condition Pt reports it feels like she needs to clear her ear after a flight or swimming. This has been happening for 2 years. she has had lots of tests and dental work. Her hearing is not affected. Pt has had prior root cannels and found that she had a tooth next to the other that had an infection and did another root cannel w/ o help. Pt has done acupuncture in the past with temporary relief. She has tried acupuncture on/off for a while. Pt reports this starts May when she was very sick. She thinks she may have had COVID. Pt reports sometime in September 2019, she had a metallic taste in her mouth and ear felt better til the fall. She went to a doctor d/t ear being painful. Pt reports she has small estation tubes and has had fluid build up. Pt reports MD prescribed her antibiotics for ear infection. She got severe vertigo d/t antibiotics and lasted until 3 days after it went away. Pt reprots now the last 6 months since dental work has been done, it clicks. ENT suggested OTC night shift for clenching at night. Pt has been using night shift for the past week and thinks maybe it has helped a tiny bit w/neck pain & head tension. Pt reports she hit her head really hard right before getting sick and hit it on a metal bar. It hurt so it stunned me and it made a big lump and had to put arnica and ice on it. Sometimes R arm goes numb with gardening or activities that use the arm a lot. 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 Prior Treatments and Tests IMPRESSION: Prior palpable abnormality corresponds to the normal appearing parotid gland. If clinical concern persists, consider follow-up ultrasound. IMPRESSION: Unremarkable CT of bilateral temporal bones and mastoids without evidence of mastoiditis Chiro did a little TMJ work ( Jose Barreto)- just seemed to make it hurt worse, but no relief acupuncture -helped temporarily w/ear issue or sclerosis. Treatment Goals Patient/Caregiver Goals no have jaw click and not feel like she has to move it around, get back to being able to do more gardening/working more w/B&B PT-OP-C Subjective Start: 03/10/21 15:26 Freq: Status: Active Protocol: Document 05/21/21 14:32 [facility] (Rec: 05/21/21 15:37 [facility] [id number]) OP-PT Subjective Patient Comments Patient Comments Pt reported stated was on a working trip, little stress but suprised felt alot better but when returned her pain came back and not sure why. She stated saw chiropractor today and did some good needed manipulations in neck and back felt welcoming jolt that seemed to release throughout whole body down to her ankles. She has been having hormone changes and unsure if could be a contributing factor. She reports alot of tension under R anterolateral ribcage not able to take big breathes or complete R trunk rotation without feeling restricted. Pt states might be going up to [place] next week and not sure will be in town for 1 more appt before end of yr. She will stop by manager front to see if Taya or Marlee available 1 more appt. PT-OP-F Manual Assessment Start: 03/10/21 15:26 Freq: Status: Active Protocol: Document 03/11/21 09:05 [facility] (Rec: 03/11/21 09:50 [facility] [id number]) Manual Assessments Soft Tissue Assessment Soft Tissue Mobility Assessment Supraspinatus, scalenes, upper trap, suboccipitals, traps palpation: tightness Pec palpation: increased tone and pain on palpation Temporal: R tight, pt reports feeling good Maseter: R tight along posterior border of jaw PT-OP-J Posture/Palpation/Skin Start: 03/10/21 15:26 Freq: Status: Active Protocol: Document 03/11/21 09:05 [facility] (Rec: 03/11/21 09:50 [facility] [id number]) Posture Evaluation [facility] Postural Classification System [facility] Postural Classifications Posterior/Posterior Vertebral Compression Test 1 Comments Posture Comments slight fwd shoulder and neck PT-OP-K Range of Motion Start: 03/10/21 15:26 Freq: Status: Active Protocol: Document 05/03/21 09:48 [facility] (Rec: 05/03/21 12:10 [facility] [id number]) Cervical Spine Range of Motion Cervical Spine Active Degrees Testing Position Sitting Flexion 50 Extension 49 Rotation Left 41 Rotation Right 41 Lateral Flexion Left 25 Lateral Flexion Right 45 ROM Limitations Soft Tissue Tightness Comments extension: tightness post SB L: discomfort L side SB R: pull L R rot: makes her want to clear ear L rot: makes want to clear ear PT-OP-L Special Tests Start: 03/10/21 15:26 Freq: Status: Active Protocol: Document 03/11/21 09:05 [facility] (Rec: 03/11/21 09:50 [facility] [id number]) Special Tests Neural Special Tests- Upper Body Median Nerve Tension Test Results Positive Comments In standing, right side Radial Nerve Tension Test Results Negative Comments In standing, right side Ulnar Nerve Tension Test Results Negative Comments In standing, right side Other Special Tests Special Tests Spurlings: negative Alar ligament: negative PT-OP-M Strength Start: 03/10/21 15:26 Freq: Status: Active Protocol: Document 03/11/21 09:05 [facility] (Rec: 03/11/21 09:50 [facility] [id number]) Shoulder Strength Shoulder Manual Muscle Testing Right Flexion 5 Normal Extension 5 Normal Abduction (C5) 4+ Good+ Adduction 5 Normal External Rotation 5 Normal Internal Rotation 5 Normal Comments Elbow ext and flex 5/5 Left Flexion 5 Normal Extension 5 Normal Abduction (C5) 5 Normal Adduction 5 Normal External Rotation 5 Normal Internal Rotation 5 Normal Comments Elbow extension and flexion 5/ 5 PT-OP-Q Treatments Start: 03/10/21 15:26 Freq: Status: Active Protocol: Document 05/21/21 14:32 [facility] (Rec: 05/21/21 15:37 [facility] [id number]) Therapeutic Exercises Sidelying Exercises open book Side bilateral Reps/Minutes 5 Comments improved R TS rotation post manual Standing Exercises Thoracic Extension Stretch Standing Exercise Name ~T8-10, in [place] Side bilateral Resistance AROM Equipment Used full roll> 1/2 roll Reps/Minutes 4 Comments Cues to not arch over foam roll, relax pelvis tbl. Good feedback response. Manual Therapy Treatment Soft Tissue Mobilization Rib cage, diaphram Body Location R anterolateral ribs 9-10 Mobilization Type Cross-Friction,Myofascial Release,Sustained Pressure, Trigger Point Release Intensity/Depth Moderate Body Position Sidelying w/ pillow between knees Comments good feedback response cervical Body Location R scalenes & SCM & R UT Mobilization Type Rolling,Sustained Pressure Intensity/Depth Moderate Body Position Hooklying Joint Mobilizations thoracic Direction PA T4-9 Grade II Body Position Prone Comments good feedback response Ribs Comments 1. R AP 1-3 2. R T 9-10 anterior and lateral sustained pressure intercostal w/ breath MWM SC Joint L Direction AP, inferior Grade II Body Position Supine PT-OP-R Modalities Start: 03/10/21 15:26 Freq: Status: Active Protocol: Document 05/06/21 13:35 [facility] (Rec: 05/06/21 14:01 [facility] [id number]) Hot Pack/Cold Pack Treatment cervical Location cervical and lumbar Patient Position Hooklying Treatment Duration (minutes) 10 PT-OP-T Assessment and Plan Start: 03/10/21 15:26 Freq: Status: Active Protocol: Document 05/21/21 14:32 [facility] (Rec: 05/21/21 15:37 [facility] [id number]) Physical Therapy Assessment Goals symptoms Manager Of Construction Goal (LTG) Pt will report no more feeling of needing to clear R ear or R jaw pain/uncomfortable popping. 05/03-still difficult 04/27/21: continues to have feeling of popping jaw for releases and feels better. 05/21/21: pt reports still constant performing popping jaw, clearing throat. LTG Duration 07/03/21 ROM Short Term Goal (STG) Pt will be indep w/HEP for ROM & improving stability & posture STG Duration achieved progressing and working on form as needed Usp Goal (LTG) Pt will have full cervical ROM w/o inc in jaw, head, neck or UE symptoms to allow typical activities w/o inc of symptoms . 05/03-neck still limited w/inc in symptoms & inc in symptoms w/jaw openin 05/21/21: pt reports still about the same, but some improvement, feels better after therapy manual and increase ROM but doesn't feel stays longer the day. Can do ADLs wants but not painfree, still contact touch hurts. LTG Duration 07/03/21 activities Manager Of Construction Goal (LTG) Pt will be able to do gardening & cleaning needed for her jobs w/o inc in RUE, neck and jaw pain. 05/21/21: after does household and other activities the pain returns and is more uncomfortable. LTG Duration 07/03/21 Assessment Summary Assessment Pt had good feedback response to manual STMs and gentle grade II mobes, incorporated MWM w/ breath and how to self apply. Reviewed TS rotation and extension for carryover improve ROM and mobility when needed, improved breath and AROM R trunk rotation, R UE FF and HABD ROM end of tx. Pt reports will try to get into see PT before end of yr if can Physical Therapy Plan Frequency and Duration Frequency of Treatment 1-2x/week Duration of Treatment 2 months Plan of Care Start Date 05/03/21 Plan of Care End Date 07/03/21 Therapeutic Interventions Therapeutic Interventions Home Exercise Program,Joint Mobilizations,Manual Therapy, Neuromuscular Re-education, Patient/Caregiver Education, Self-Care/Home Management,Soft Tissue Mobilization,Taping, Therapeutic Activities, Therapeutic Exercises Modalities Cold Pack/Ice Massage,Electric Stimulation,Hot Packs, Traction- Mechanical, Ultrasound Next Visit Focus/Plan Next Note Type Treatment Note Next Visit Plan Believe 1 more allowable visit after 05/21/21. Pt will call to schedule 1 more visit with PT before end of yr. Maintain [place] visits (2 units) d/t insurance limits. POC: cont to work on ribcage mobility
--- NOTE | 2021-09-08 16:35 | PT.OPDS ---
Current Diagnoses Otalgia, right ear (05/21/21) Other abnormal auditory perceptions, right ear (05/21/21) Other specified disorders of right ear (05/21/21) Unspecified temporomandibular joint disorder, unspecified side (05/21/21) Cervicalgia (05/21/21) Muscle weakness (generalized) (05/21/21) Abnormal posture (05/21/21) Visit Care Team Role Provider Type Leno Gray DO Primary Care Provider Physician Specialty: Family Practice Address: [address] [place] [address], [id number] Email: Seng Griffin MD Attending Provider Physician Referring Provider Specialty: Ear, Nose, Throat Address: [address] [place] [address], [id number] Email: [email or web address] Visit Number Visit Number 12 Discharge Summary PT-OP-B Current Condition Start: 03/10/21 15:26 Freq: Status: Active Protocol: Document 03/11/21 09:05 [facility] (Rec: 03/11/21 09:50 [facility] [id number]) Current Condition History of Current Condition Onset Date 2 years Current Complaints R ear uncomfortable History of Current Condition Pt reports it feels like she needs to clear her ear after a flight or swimming. This has been happening for 2 years. she has had lots of tests and dental work. Her hearing is not affected. Pt has had prior root cannels and found that she had a tooth next to the other that had an infection and did another root cannel w/ o help. Pt has done acupuncture in the past with temporary relief. She has tried acupuncture on/off for a while. Pt reports this starts May when she was very sick. She thinks she may have had COVID. Pt reports sometime in September 2019, she had a metallic taste in her mouth and ear felt better til the fall. She went to a doctor d/t ear being painful. Pt reports she has small estation tubes and has had fluid build up. Pt reports MD prescribed her antibiotics for ear infection. She got severe vertigo d/t antibiotics and lasted until 3 days after it went away. Pt reprots now the last 6 months since dental work has been done, it clicks. ENT suggested OTC manager night for clenching at night. Pt has been using manager night for the past week and thinks maybe it has helped a tiny bit w/neck pain & head tension. Pt reports she hit her head really hard right before getting sick and hit it on a metal bar. It hurt so it stunned me and it made a big lump and had to put arnica and ice on it. Sometimes R arm goes numb with gardening or activities that use the arm a lot. 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 Prior Treatments and Tests IMPRESSION: Prior palpable abnormality corresponds to the normal appearing parotid gland. If clinical concern persists, consider follow-up ultrasound. IMPRESSION: Unremarkable CT of bilateral temporal bones and mastoids without evidence of mastoiditis Chiro did a little TMJ work ( Jose Barreto)- just seemed to make it hurt worse, but no relief acupuncture -helped temporarily w/ear issue or sclerosis. Treatment Goals Patient/Caregiver Goals no have jaw click and not feel like she has to move it around, get back to being able to do more gardening/working more w/B&B PT-OP-C Subjective Start: 03/10/21 15:26 Freq: Status: Active Protocol: Document 05/21/21 14:32 [facility] (Rec: 05/21/21 15:37 SP [id number]) OP-PT Subjective Patient Comments Patient Comments Pt reported stated was on a working trip, little stress but suprised felt alot better but when returned her pain came back and not sure why. She stated saw chiropractor today and did some good needed manipulations in neck and back felt welcoming jolt that seemed to release throughout whole body down to her ankles. She has been having hormone changes and unsure if could be a contributing factor. She reports alot of tension under R anterolateral ribcage not able to take big breathes or complete R trunk rotation without feeling restricted. Pt states might be going up to [place] next week and not sure will be in town for 1 more appt before end of yr. She will stop by front end technician to see if Taya or Marlee available 1 more appt. PT-OP-F Manual Assessment Start: 03/10/21 15:26 Freq: Status: Active Protocol: Document 03/11/21 09:05 [facility] (Rec: 03/11/21 09:50 [facility] [id number]) Manual Assessments Soft Tissue Assessment Soft Tissue Mobility Assessment Supraspinatus, scalenes, upper trap, suboccipitals, traps palpation: tightness Pec palpation: increased tone and pain on palpation Temporal: R tight, pt reports feeling good Maseter: R tight along posterior border of jaw PT-OP-J Posture/Palpation/Skin Start: 03/10/21 15:26 Freq: Status: Active Protocol: Document 03/11/21 09:05 [facility] (Rec: 03/11/21 09:50 [facility] [id number]) Posture Evaluation [facility] Postural Classification System Errol Postural Classifications Posterior/Posterior Vertebral Compression Test 1 Comments Posture Comments slight fwd shoulder and neck PT-OP-K Range of Motion Start: 03/10/21 15:26 Freq: Status: Active Protocol: Document 05/03/21 09:48 [facility] (Rec: 05/03/21 12:10 [facility] [id number]) Cervical Spine Range of Motion Cervical Spine Active Degrees Testing Position Sitting Flexion 50 Extension 49 Rotation Left 41 Rotation Right 41 Lateral Flexion Left 25 Lateral Flexion Right 45 ROM Limitations Soft Tissue Tightness Comments extension: tightness post SB L: discomfort L side SB R: pull L R rot: makes her want to clear ear L rot: makes want to clear ear PT-OP-L Special Tests Start: 03/10/21 15:26 Freq: Status: Active Protocol: Document 03/11/21 09:05 [facility] (Rec: 03/11/21 09:50 [facility] [id number]) Special Tests Neural Special Tests- Upper Body Median Nerve Tension Test Results Positive Comments In standing, right side Radial Nerve Tension Test Results Negative Comments In standing, right side Ulnar Nerve Tension Test Results Negative Comments In standing, right side Other Special Tests Special Tests Spurlings: negative Alar ligament: negative PT-OP-M Strength Start: 03/10/21 15:26 Freq: Status: Active Protocol: Document 03/11/21 09:05 [facility] (Rec: 03/11/21 09:50 [facility] [id number]) Shoulder Strength Shoulder Manual Muscle Testing Right Flexion 5 Normal Extension 5 Normal Abduction (C5) 4+ Good+ Adduction 5 Normal External Rotation 5 Normal Internal Rotation 5 Normal Comments Elbow ext and flex 5/5 Left Flexion 5 Normal Extension 5 Normal Abduction (C5) 5 Normal Adduction 5 Normal External Rotation 5 Normal Internal Rotation 5 Normal Comments Elbow extension and flexion 5/ 5 PT-OP-T Assessment and Plan Start: 03/10/21 15:26 Freq: Status: Active Protocol: Document 09/08/21 16:33 [facility] (Rec: 09/08/21 16:34 [facility] [id number]) Physical Therapy Assessment Goals symptoms Treasury Analyst Goal (LTG) Pt will report no more feeling of needing to clear R ear or R jaw pain/uncomfortable popping. 05/03-still difficult 04/27/21: continues to have feeling of popping jaw for releases and feels better. 05/21/21: pt reports still constant performing popping jaw, clearing throat. LTG Duration 07/03/21 ROM Short Term Goal (STG) Pt will be indep w/HEP for ROM & improving stability & posture STG Duration achieved progressing and working on form as needed Treasury Analyst Goal (LTG) Pt will have full cervical ROM w/o inc in jaw, head, neck or UE symptoms to allow typical activities w/o inc of symptoms . 05/03-neck still limited w/inc in symptoms & inc in symptoms w/jaw openin 05/21/21: pt reports still about the same, but some improvement, feels better after therapy manual and increase ROM but doesn't feel stays longer the day. Can do ADLs wants but not painfree, still contact touch hurts. LTG Duration 07/03/21 activities Correction Goal (LTG) Pt will be able to do gardening & cleaning needed for her jobs w/o inc in RUE, neck and jaw pain. 05/21/21: after does household and other activities the pain returns and is more uncomfortable. LTG Duration 07/03/21 Assessment Summary Assessment Pt has not been seen for 3 months and pt did not call back to schedule further appts after this office discussed w /her to schedule further. She was making slow progress but was imprvoing. [place] at this time d/t no longer attending PT. Physical Therapy Plan Discharge Physical Therapy Discharge Reasons No Longer Attending PT
== END 2021-09-09 13:31 ==
LOC: PHYS 14:30
PROVIDERS: PCP Family Medicine; Referring Provider Otolaryngology; Visit Provider Otolaryngology
DX: H92.01 Otalgia, right ear (principal); H93.291 Other abnormal auditory perceptions, right ear; H93.8X1 Other specified disorders of right ear; M26.609 Unspecified temporomandibular joint disorder, unspecified side; M54.2 Cervicalgia; M62.81 Muscle weakness (generalized); R29.3 Abnormal posture
CPT/HCPCS: 97110; 97140; 97162